=== PATIENT | male | born 1955 | race Two or more races ===

== ENCOUNTER 2017-03-17 15:15 | Emergency (ER) | payer OTHER ==
[~2017-03-17] VITALS: Ht 165.1 cm; Wt 68.0 kg
[2017-03-17 15:21] VITALS: BP 136/72
[2017-03-17 16:12] LABS: BASOPHILS % (AUTO) 0.6 % (0.0-2.0); EOSINOPHILS % (AUTO) 1.7 % (0.0-3.0); LYMPHOCYTES % (AUTO) 25.3 % (20.0-45.0); MEAN CORPUSCULAR HEMOGLOBIN 29.9 PG (27.0-31.0); MEAN CORPUSCULAR HGB CONC 34.3 G/DL (32.0-36.0); MEAN CORPUSCULAR VOLUME 87 FL (80-99); MEAN PLATELET VOLUME 7.1 FL (6.5-10.1); MONOCYTES % (AUTO) 4.8 % (1.0-10.0); NEUTROPHILS % (AUTO) 67.7 % (45.0-75.0); PLATELET COUNT 208 K/UL (150-450); RED BLOOD COUNT 4.73 M/UL (4.70-6.10); RED CELL DISTRIBUTION WIDTH 11.6 % (11.6-14.8); WHITE BLOOD COUNT 8.1 K/UL (4.8-10.8)
[2017-03-17 16:29] LABS: ANION GAP 9 mmol/L (5-15); CALCIUM 8.6 MG/DL (8.5-10.1); CARBON DIOXIDE 30 MMOL/L (21-32); CHLORIDE 102 MMOL/L (98-107); GLOMERULAR FILTRATION RATE > 60 mL/min (>60); POTASSIUM 3.6 MMOL/L (3.5-5.1); SODIUM 141 MMOL/L (136-145)
[2017-03-17] MEDS ORDERED: IBUPROFEN600 MG ORAL (16:50)
[2017-03-17 17:00] VITALS: BP 136/72
--- NOTE | 2017-03-17 20:50 | Emergency Room Report ---
History of Present Illness General Chief Complaint: Lower Extremity Injury Source: Patient (AMBROCIO MERRILL) Present Illness HPI The patient is a 61-year-old male presenting for right ankle pain which began 2 days ago for no known reason. 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 He denies any past injury or surgery to the ankle. He denies history of gout. Pain is a 9/10 dull ache to the outside of the right ankle and does not radiate. Worse with touch and walking. He denies any numbness or tingling, fever, chills, rash, calf pain or swelling , shortness of breath, chest pain (AMBROCIO MERRILL) Allergies: Coded Allergies: No Known Allergies (Unverified , 03/17/17) Patient History Past Medical History: see triage record Pertinent Family History: none Reviewed Nursing Documentation: PMH: Agreed, PSxH: Agreed (AMBROCIO MERRILL) Nursing Documentation-PMH Past Medical History: No History, Except For (AMBROCIO MERRILL) Review of Systems All Other Systems: negative except mentioned in HPI (AMBROCIO MERRILL) Physical Exam Vital Signs Date Time Temp Pulse Resp B/P (MAP) Pulse Ox O2 Delivery O2 Flow Rate FiO2 03/17/17 15:21 98.1 74 18 136/72 98 Room Air Sp02 EP Interpretation: reviewed, normal General Appearance: no apparent distress, alert, GCS 15, non-toxic Head: normocephalic, atraumatic Eyes: bilateral eye normal inspection, bilateral eye PERRL ENT: hearing grossly normal, normal pharynx, no angioedema, normal voice Musculoskeletal: no calf tenderness, decreased range of motion - R ankle, swelling - R lateral and anterior ankle, tender - R lateral ankle Neurologic: alert, oriented x3, responsive, motor strength/tone normal, sensory intact, speech normal Psychiatric: judgement/insight normal, memory normal, mood/affect normal, no suicidal/homicidal ideation Skin: normal color, no rash Lymphatic: no adenopathy (AMBROCIO MERRILL) Procedures Splinting Splinting : Consent: Verbal Location: R ankle del wrap Pre-Proc Neuro Vasc Exam: normal Post-Proc Neuro Vasc Exam: normal Patient Tolerated: Well Complications: None (AMBROCIO MERRILL) Medical Decision Making PA Attestation Dr. Lowery is my supervising physician. Patient management was discussed with my supervising physician (AMBROCIO MERRILL) Diagnostic Impression: Primary Impression: Ankle pain, right Qualified Codes: M25.571 - Pain in right ankle and joints of right foot ER Course The patient is a 61-year-old male presenting for right ankle pain which began 2 days ago for no known reason Ddx considered include but not limited to gout, septic arthritis, sprain/strain , fracture, contusion PE: Afebrile NAD Musculoskeletal: There is tenderness to palpation and edema to the right lateral and anterior ankle. Sensation is intact to light touch. Skin is warm and dry. There is limited active range of motion at the ankle. The patient states that this is normal for him. No calf tenderness or swelling CBC unremarkable. No leukocytosis BMP shows hyperglycemia. Otherwise unremarkable. Serum uric acid within normal limits Right ankle x-ray Shows soft tissue swelling. No fracture or dislocation Right ankle Del wrap is placed in the patient is discharged home with prescription for Motrin. he is given instructions for rice therapy He will follow up with his primary doctor. ER precautions given Laboratory Tests Test 03/17/17 15:50 White Blood Count 8.1 K/UL (4.8-10.8) Red Blood Count 4.73 M/UL (4.70-6.10) Hemoglobin 14.1 G/DL (14.2-18.0) L Hematocrit 41.3 % (42.0-52.0) L Mean Corpuscular Volume 87 FL (80-99) Mean Corpuscular Hemoglobin 29.9 PG (27.0-31.0) Mean Corpuscular Hemoglobin Concent 34.3 G/DL (32.0-36.0) Red Cell Distribution Width 11.6 % (11.6-14.8) Platelet Count 208 K/UL (150-450) Mean Platelet Volume 7.1 FL (6.5-10.1) Neutrophils (%) (Auto) 67.7 % (45.0-75.0) Lymphocytes (%) (Auto) 25.3 % (20.0-45.0) Monocytes (%) (Auto) 4.8 % (1.0-10.0) Eosinophils (%) (Auto) 1.7 % (0.0-3.0) Basophils (%) (Auto) 0.6 % (0.0-2.0) Sodium Level 141 MMOL/L (136-145) Potassium Level 3.6 MMOL/L (3.5-5.1) Chloride Level 102 MMOL/L (98-107) Carbon Dioxide Level 30 MMOL/L (21-32) Anion Gap 9 mmol/L (5-15) Blood Urea Nitrogen 18 mg/dL (7-18) Creatinine 1.0 MG/DL (0.55-1.30) Estimate Glomerular Filtration Rate > 60 mL/min (>60) Glucose Level 194 MG/DL (74-106) H Uric Acid 6.1 MG/DL (2.6-7.2) Calcium Level 8.6 MG/DL (8.5-10.1) Lab Results Impression CBC unremarkable. No leukocytosis BMP shows hyperglycemia. Otherwise unremarkable. Serum uric acid within normal limits (AMBROCIO MERRILL P.A.) Other X-Ray Diagnostic Results Other X-Ray Diagnostic Results : X-Ray ordered: R ankle # of Views/Limited Vs Complete: 3 View Indication: Pain EP Interpretation: Yes PA Xray: Interpretation reviewed, by supervising MD, and agrees with findings. Interpretation: no dislocation, no fractures, other - + STS Impression: Other - There is soft tissue swelling but no fracture or dislocation Electronically Signed by: Ambrocio Merrill PA-C (AMBROCIO MERRILL P.A.) Other X-Ray Diagnostic Results : Electronically Signed by: Christa documentation reviewed by me and is accurate, Francisco Javier Lowery MD. (Francisco Javier Lowery M.D.) Last Vital Signs Date Time Temp Pulse Resp B/P (MAP) Pulse Ox O2 Delivery O2 Flow Rate FiO2 03/17/17 17:00 98.1 18 136/72 98 Room Air 03/17/17 15:21 74 Status: improved (AMBROCIO MERRILL P.A.) Disposition: HOME, SELF-CARE Condition: Improved Scripts Ibuprofen* (MOTRIN*) 600 Mg Tablet 600 MG ORAL Q8H Y for For Pain, #30 TAB 0 Refills Prov: AMBROCIO MERRILL 03/17/17 Patient Instructions: Ankle Pain Additional Instructions: I discussed my findings with the patient. All questions and concerns have been answered. Treatment and medication compliance have been addressed. Return to ED if pain remains or worsens, numbness or tingling occurs, new rash is noticed, fever is noticed, or if needed for any reason. Patient verbalized understanding of discharge instructions. Please return to the emergency department if you notice other symptoms including fever, rash, and/or worsening pain AMBROCIO MERRILL Mar 17, 2017 20:50 Francisco Javier Lowery M.D. Mar 18, 2017 03:25
--- NOTE | 2017-03-20 10:36 | Diagnostic Imaging Report ---
Indication: Pain Technique: XRAY ANKLE MIN 3VWS RIGHT Comparison: None Findings: The bones appear demineralized. There is no acute fracture or dislocation. Ankle mortise is intact on these nonstress views. No ankle joint effusion is appreciated. No radiopaque foreign body is seen. There is mild bimalleolar soft tissue swelling. Degenerative changes at the talonavicular joint are noted. Impression: No acute fracture or dislocation.
== END 2017-03-17 17:00 | disposition home or self-care (01) ==
LOC: EMR 15:50
DX: M25.571 Pain in right ankle and joints of right foot (principal)
CPT/HCPCS: 36415; 80048; 84550; 85025; 99284

== ENCOUNTER 2017-03-20 15:57 | Emergency (ER) | payer OTHER ==
[~2017-03-20] VITALS: Ht 162.6 cm; Wt 77.1 kg
[~2017-03-20 15:57] MED LIST: IBUPROFEN600 MG ORAL
[2017-03-20] MEDS ORDERED: CEPHALEXIN500 MG ORAL (16:55)
[2017-03-20] MEDS ORDERED: TRAMADOL HCL50 MG ORAL (16:55)
[2017-03-20 17:10] VITALS: BP 136/89
--- NOTE | 2017-03-20 22:44 | Emergency Room Report ---
History of Present Illness General Chief Complaint: Pain Source: Patient Present Illness [facility] The patient is a 61-year-old male presenting for continued right ankle pain. He was seen in this emergency department 3 days prior for the same complaint. He had an x-ray done which was unremarkable. He was discharged with a prescription for Motrin. He states that the pain was decreasing for the previous 2 days and now has returned. Pain is an 8/10 dull ache and does not radiate. Worse with touch. He denies injury to the ankle. 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 He denies any other symptoms including fever, chills, rash, Pain or swelling, numbness Allergies: Coded Allergies: No Known Allergies (Unverified , 03/17/17) Patient History Past Medical History: see triage record Pertinent Family History: none Reviewed Nursing Documentation: PMH: Agreed, PSxH: Agreed Nursing Documentation-PMH Past Medical History: No History, Except For Review of Systems All Other Systems: negative except mentioned in HPI Physical Exam Vital Signs Date Time Temp Pulse Resp B/P (MAP) Pulse Ox O2 Delivery O2 Flow Rate FiO2 03/20/17 16:05 97.7 73 16 130/81 99 Room Air Sp02 EP Interpretation: reviewed, normal General Appearance: no apparent distress, alert, GCS 15, non-toxic Head: normocephalic, atraumatic Eyes: bilateral eye normal inspection, bilateral eye PERRL ENT: hearing grossly normal, normal pharynx, no angioedema, normal voice Neck: full range of motion, supple/symm/no masses Respiratory: chest non-tender, lungs clear, normal breath sounds, speaking full sentences Musculoskeletal: decreased range of motion - R ankle, swelling - R anterior ankle, tender - R anterior ankle Neurologic: alert, oriented x3, responsive, motor strength/tone normal, sensory intact, speech normal Psychiatric: judgement/insight normal, memory normal, mood/affect normal, no suicidal/homicidal ideation Skin: normal color, no rash, warm/dry, well hydrated Medical Decision Making PA Attestation Dr. Jolley is my supervising physician. Patient management was discussed with my supervising physician Diagnostic Impression: Primary Impression: Ankle pain, right Qualified Codes: M25.571 - Pain in right ankle and joints of right foot ER Course The patient is a 61-year-old male presenting for continued right ankle pain. Ddx considered include but not limited to sprain/strain, fracture, contusion, gout, cellulitis, among others PE: afebrile. NAD There is tenderness to palpation and edema to the right anterior ankle. Limited active range of motion. Sensation is intact to light touch. No erythema. No breaking the skin. Not fluctuant. No calf tenderness or edema The patient had an x-ray done 3 days prior of the ankle which was unremarkable. Blood work was also unremarkable including uric acid The patient will continue taking the Motrin as prescribed and is given prescription for tramadol. He is also given prescription for Keflex as a precaution for infection. He needs to followup with his primary doctor as soon as possible ER precautions given Last Vital Signs Date Time Temp Pulse Resp B/P (MAP) Pulse Ox O2 Delivery O2 Flow Rate FiO2 03/20/17 17:10 86 20 136/89 99 Room Air 03/20/17 17:10 98.0 Status: improved Disposition: HOME, SELF-CARE Condition: Improved Scripts Cephalexin* (KEFLEX*) 500 Mg Capsule 500 MG ORAL EVERY 12 HOURS, #14 CAP 0 Refills Prov: ETHEL MERRILL P.A. 03/20/17 Tramadol Hcl* (ULTRAM*) 50 Mg Tablet 50 MG ORAL Q6H Y for For Pain, #10 TAB 0 Refills Prov: ETHEL MERRILL P.A. 03/20/17 Referrals: [facility],REFERRING (PCP) Patient Instructions: Ankle Pain, RICE for Routine Care of Injuries Additional Instructions: I discussed my findings with the patient. All questions and concerns have been answered. Treatment and medication compliance have been addressed. I advised the patient that they need to follow up with primary doctor in 3-5 days. Return to ED if pain remains or worsens, numbness or tingling occurs, new rash is noticed, fever is noticed, or if needed for any reason. Patient verbalized understanding of discharge instructions. Continue to take the ibuprofen as directed. ETHEL MERRILL Mar 20, 2017 22:44
== END 2017-03-20 17:20 | disposition home or self-care (01) ==
LOC: EMR 16:50
DX: M25.571 Pain in right ankle and joints of right foot (principal)
CPT/HCPCS: 99283

== ENCOUNTER 2017-05-07 15:17 | Emergency (ER) | payer OTHER ==
[~2017-05-07] VITALS: Ht 167.6 cm; Wt 77.1 kg
[~2017-05-07 15:17] MED LIST changes: +CEPHALEXIN500 MG ORAL; +TRAMADOL HCL50 MG ORAL
[2017-05-07] MEDS ORDERED: METFORMIN HCL500 M1 ORAL (15:34)
[2017-05-07 15:38] VITALS: BP 118/74
--- NOTE | 2017-05-07 15:49 | Emergency Room Report ---
History of Present Illness General Chief Complaint: Abdominal Pain Source: Patient Present Illness HPI 61-year-old male with 1 day onset of multiple episodes of watery diarrhea, I to 6 in number. No associated blood in diarrhea. No sick contacts at home, no foreign travel. No history of abdominal surgery No associated nausea vomiting No urinary complaints hisotry of diabetes, takes metformin Patient has intermittent abdominal pain, improved after bowel movement Allergies: Coded Allergies: No Known Allergies (Unverified , 03/17/17) Patient History Past Medical History: DM Past Surgical History: none Pertinent Family History: none Social History: Denies: smoking, alcohol use, drug use Immunizations: UTD Reviewed Nursing Documentation: PMH: Agreed, PSxH: Agreed Nursing Documentation-PMH Past Medical History: No History, Except For Hx Cardiac Problems: No Hx Hypertension: No Hx Pacemaker: No Hx Asthma: No Hx COPD: No Hx Diabetes: Yes Hx Cancer: No Hx Gastrointestinal Problems: No Hx Dialysis: No History Of Psychiatric Problem: No Hx Neurological Problems: No Hx Cerebrovascular Accident: No Hx Seizures: No Review of Systems All Other Systems: negative except mentioned in HPI Physical Exam Vital Signs Date Time Temp Pulse Resp B/P (MAP) Pulse Ox O2 Delivery O2 Flow Rate FiO2 05/07/17 15:29 97.5 70 16 123/75 99 Room Air Sp02 EP Interpretation: reviewed, normal General Appearance: normal inspection, well appearing, no apparent distress, alert, GCS 15, non-toxic, other - Well-appearing, pleasant Head: normocephalic, atraumatic Eyes: bilateral eye PERRL, bilateral eye EOMI ENT: normal ENT inspection, hearing grossly normal, normal pharynx, no angioedema, normal voice, TMs + canals normal, uvula midline, moist mucus membranes Neck: normal inspection, full range of motion, supple, thyroid normal, no meningismus, no bony tend Respiratory: normal inspection, lungs clear, normal breath sounds, no rhonchi, no respiratory distress, no retraction, no accessory muscle use, no wheezing, speaking full sentences Cardiovascular #1: regular rate, rhythm, no edema, no JVD, normal capillary refill Gastrointestinal: normal inspection, normal bowel sounds, soft, no mass, no peritonitis, non-distended, no guarding, no hernia, no pulsatile mass, other - Various areas of abdominal tenderness, however no peritonitis or rigidity Genitourinary: no CVA tenderness Musculoskeletal: normal inspection, back normal, normal range of motion, no calf tenderness, pelvis stable, Kushal's Sign negative Neurologic: normal inspection, alert, oriented x3, responsive, global climate change researcher III-XII nml as tested, motor strength/tone normal, cerebellar normal, normal gait, speech normal Psychiatric: normal inspection, judgement/insight normal, mood/affect normal, no suicidal/homicidal ideation, no delusions Skin: normal inspection, normal color, no rash Lymphatic: normal inspection, no adenopathy Medical Decision Making Diagnostic Impression: Primary Impression: Elevated lipase Additional Impressions: Hypokalemia Diarrhea Qualified Codes: R19.7 - Diarrhea, unspecified Cystitis ER Course Labs significant for mild hypokalemia, and elevated lipase, likely reactionary from diarrhea. CT done to evaluate for acute pancreatitis however was negative for acute pathology. There was some bladder wall thickening and small amount of WBCs in urine with hematuria. Will tx empirically for UTI. Diarrhea resolved after Bentyl and Reglan in the ER Potassium repleted Was given macrobid and bentyl for Rx Advised close PMD followup DC home Last Vital Signs Date Time Temp Pulse Resp B/P (MAP) Pulse Ox O2 Delivery O2 Flow Rate FiO2 05/07/17 15:29 97.5 70 16 123/75 99 Room Air Status: improved Disposition: HOME, SELF-CARE Scripts Nitrofurantoin Monohyd/M-Cryst* (MACROBID 100 MG*) 100 Mg Capsule 100 MG ORAL EVERY 12 HOURS for 7 Days, #14 CAP Prov: MADELEINE PÉREZ M.D. 05/07/17 Dicyclomine Hcl* (BENTYL*) 10 Mg Capsule 10 MG ORAL TID for Diarrhea for 7 Days, #20 CAP Prov: MADELEINE PÉREZ M.D. 05/07/17 MADELEINE PÉREZ M.D. May 07, 2017 15:49
[2017-05-07] MEDS: Dicyclomine HCl 10mg/5ml oral soln ORAL ONE (16:02)
[2017-05-07 16:24] LABS: APPEARANCE,URINE CLEAR; BILIRUBIN, URINE NEGATIVE (NEGATIVE); COLOR,URINE PALE YELLOW; GLUCOSE, URINE (UA) NEGATIVE (NEGATIVE); KETONES,URINE NEGATIVE (NEGATIVE); LEUKOCYTE ESTERASE ,URINE 1+ (NEGATIVE); NITRITE,URINE NEGATIVE (NEGATIVE); PH,URINE 6 (4.5-8.0); PROTEIN,URINE NEGATIVE (NEGATIVE); UROBILINOGEN,URINE NORMAL MG/DL (0.0-1.0)
[2017-05-07 16:37] LABS: ANION GAP 7 mmol/L (5-15); BLOOD UREA NITROGEN 10 mg/dL (7-18); CALCIUM 8.8 MG/DL (8.5-10.1); CARBON DIOXIDE 29 MMOL/L (21-32); CHLORIDE 104 MMOL/L (98-107); CREATININE 0.9 MG/DL (0.55-1.30); POTASSIUM 3.1 MMOL/L (3.5-5.1); SODIUM 140 MMOL/L (136-145)
[2017-05-07 16:42] LABS: ALANINE AMINOTRANSFERASE 16 U/L (12-78); ALBUMIN 3.7 G/DL (3.4-5.0); ALKALINE PHOSPHATASE 76 U/L (46-116); ASPARTATE AMINO TRANSFERASE 14 U/L (15-37); BILIRUBIN,TOTAL 0.3 MG/DL (0.2-1.0)
[2017-05-07 17:04] LABS: BASOPHILS % (AUTO) 0.5 % (0.0-2.0); EOSINOPHILS % (AUTO) 0.6 % (0.0-3.0); HEMATOCRIT 45.2 % (42.0-52.0); HEMOGLOBIN 15.1 G/DL (14.2-18.0); LYMPHOCYTES % (AUTO) 23.9 % (20.0-45.0); MEAN CORPUSCULAR VOLUME 86 FL (80-99); MONOCYTES % (AUTO) 4.4 % (1.0-10.0); NEUTROPHILS % (AUTO) 70.6 % (45.0-75.0); PLATELET COUNT 247 K/UL (150-450); RED BLOOD COUNT 5.25 M/UL (4.70-6.10); RED CELL DISTRIBUTION WIDTH 11.7 % (11.6-14.8); WHITE BLOOD COUNT 9.7 K/UL (4.8-10.8)
[2017-05-07 18:24] VITALS: BP 123/75
[2017-05-07] MEDS ORDERED: NITROFURANTOIN100 M2 ORAL (18:24)
[2017-05-07] MEDS ORDERED: BENTYL10 MG ORAL (18:24)
[2017-05-07 18:32] VITALS: BP 123/75
--- NOTE | 2017-05-08 08:41 | Diagnostic Imaging Report ---
Clinical Indication: Abdominal pain, abnormal lipase Technique: No oral contrast utilized, per emergency room physician request IV administration nonionic contrast. Multiphasic spiral acquisitions obtained through the abdomen and pelvis. Multiplanar reconstructions were generated. Total dose length product 1882.04 mGycm. CTDIvol(s) 20.38,18.61 mGy. Dose reduction achieved using automated exposure control Comparison: none Findings: The pancreas is unremarkable. The liver, gallbladder, bile ducts, spleen, adrenals, right kidney are all unremarkable. The left kidney demonstrates a lower pole volume loss with adjacent cysts and dystrophic calcifications. Some the calcifications may be in the lower pole collecting system is well No retroperitoneal or mesenteric mass or adenopathy. No pelvic mass or adenopathy. The prostate is somewhat prominent.. Lack of enteric contrast limits assessment of the GI tract. There are a few colonic diverticula. No evidence of diverticulitis. Normal appendix. No small bowel distention. No free or loculated intraperitoneal air or fluid is evident. Distal esophagus, stomach, duodenum are unremarkable. The included lung bases demonstrate posterior dependent atelectatic change. Normal heart size. The bones are unremarkable. Impression: No acute abnormality. Unremarkable pancreas Left renal scarring and likely dystrophic calcification as well as possible nonobstructing calyceal calculi. Presumably postinflammatory in nature Posterior pulmonary parenchymal atelectatic changes This agrees with the preliminary interpretation provided overnight by [facility] teleradiology service. The CT scanner at [facility] is accredited by the [employer] [employer] and the scans are performed using protocols designed to limit radiation exposure to as low as reasonably achievable to attain images of sufficient resolution adequate for diagnostic evaluation.
== END 2017-05-07 18:34 | disposition home or self-care (01) ==
LOC: EMR 17:18
DX: R79.89 Other specified abnormal findings of blood chemistry (principal); E87.6 Hypokalemia; R19.7 Diarrhea, unspecified; N30.90 Cystitis, unspecified without hematuria; E11.9 Type 2 diabetes mellitus without complications
CPT/HCPCS: 36415; 74177; 80053; 81003; 83690; 85025; 96374; 99284; Q9967; S0028; J8499

== ENCOUNTER 2017-07-12 09:57 | Emergency (ER) | payer OTHER ==
[~2017-07-12] VITALS: Ht 172.7 cm; Wt 70.3 kg
[~2017-07-12 09:57] MED LIST changes: +BENTYL10 MG ORAL; +METFORMIN HCL500 M1 ORAL; +NITROFURANTOIN100 M2 ORAL
[2017-07-12 10:17] VITALS: BP 123/80
[2017-07-12] MEDS ORDERED: INDOMETHACIN50 MG PO (10:55)
--- NOTE | 2017-07-12 12:00 | Emergency Room Report ---
History of Present Illness General Chief Complaint: Pain Source: Patient Present Illness HPI 61-year-old male presents to ED for evaluation. Complaining of left big toe pain and swelling 3 days. Pain is throbbing, 8 at 10 nonradiating. Denies recent trauma. States he was here a few months ago with right ankle pain without trauma. No other aggravating relieving factors. Denies any other associated symptoms Allergies: Coded Allergies: No Known Allergies (Unverified , 03/17/17) Patient History Past Medical History: DM Past Surgical History: none Pertinent Family History: none Social History: Denies: smoking, alcohol use, drug use Immunizations: UTD Reviewed Nursing Documentation: PMH: Agreed; PSxH: Agreed Nursing Documentation-PMH Hx Cardiac Problems: No - kidney stone Hx Hypertension: No Hx Pacemaker: No Hx Asthma: No Hx COPD: No Hx Diabetes: Yes - DM2 Hx Cancer: No Hx Gastrointestinal Problems: No Hx Dialysis: No Hx Neurological Problems: No Hx Cerebrovascular Accident: No Hx Seizures: No Review of Systems All Other Systems: negative except mentioned in HPI Physical Exam Vital Signs Date Time Temp Pulse Resp B/P (MAP) Pulse Ox O2 Delivery O2 Flow Rate FiO2 07/12/17 10:10 98.4 66 17 123/80 99 Room Air 98.4 Sp02 EP Interpretation: reviewed, normal General Appearance: no apparent distress, alert, GCS 15, non-toxic Head: normocephalic Eyes: bilateral eye normal inspection, bilateral eye PERRL ENT: normal ENT inspection Neck: normal inspection Respiratory: normal inspection Cardiovascular #1: normal inspection Gastrointestinal: normal inspection Rectal: deferred Genitourinary: no CVA tenderness Musculoskeletal: tender - L big toe. no erythema. no induration. no discharge Neurologic: alert, oriented x3, responsive, motor strength/tone normal, sensory intact, speech normal Psychiatric: normal inspection Skin: normal inspection Lymphatic: normal inspection Medical Decision Making Diagnostic Impression: Primary Impression: Toe pain Qualified Codes: M79.675 - Pain in left toe(s) ER Course Hospital Course 61-year-old M presents ED with left big toe pain and swelling. Differential diagnoses include: Fracture, dislocation, sprain, contusion, bursitis, septic joint Clinical course Patient placed on stretcher. After initial history, physical exam reveals an male in no acute distress. There is swelling and to the left toe. No fluctuance. Patient appears well and nontoxic. No evidence of ingrown toenail Patient was here in March with nontraumatic ankle pain. Workup was negative including labs and x-ray. Given these 2 presentations I have suspicion for gout. Discussed with patient. Given no bruising or crepitus, no history of trauma I do not believe x-rays are indicated at this time Diagnosis - toe pain Stable and discharged to home with prescription for indomethacin. Followup with PMD. Return to ED if symptoms recur or worsen Last Vital Signs Date Time Temp Pulse Resp B/P (MAP) Pulse Ox O2 Delivery O2 Flow Rate FiO2 07/12/17 11:03 98.4 73 18 123/80 99 Room Air 98.4 Status: improved Disposition: HOME, SELF-CARE Condition: Stable Scripts Indomethacin (INDOMETHACIN) 50 Mg Capsule 50 MG PO TID for 7 Days, CAP Prov: Sampson Sheikh MD 07/12/17 Referrals: [facility],REFERRING (PCP) Patient Instructions: Gout, [id number] Sampson Sheikh MD Jul 12, 2017 12:00
== END 2017-07-12 11:29 | disposition home or self-care (01) ==
LOC: EMR 10:30
DX: M79.675 Pain in left toe(s) (principal); E11.9 Type 2 diabetes mellitus without complications
CPT/HCPCS: 82962; 99283

== ENCOUNTER 2018-02-04 14:59 | Inpatient (IN) | payer OTHER ==
[~2018-02-04] VITALS: Ht 160 cm; Wt 64.9 kg
[~2018-02-04 14:59] MED LIST changes: +INDOMETHACIN50 MG PO
--- NOTE | 2018-02-04 15:12 | Emergency Room Report ---
History of Present Illness General Chief Complaint: Pain Source: Patient Present Illness HPI 62-year-old male, history of diabetes, kidney stones, presenting with left- sided flank pain. Patient states that he was recently hospitalized at [facility] about 9 days ago. During that time he was diagnosed with a left-sided kidney stone, he underwent lithotripsy, and was sent home. Patient has been taking Flomax as well as [place]. Patient states that he started to have increased sharp pain in his left flank radiating to groin, started about 10 :30 this morning. Had some nausea vomiting. No fever no chills. No gross hematuria Allergies: Coded Allergies: No Known Allergies (Unverified , 03/17/17) Patient History Past Medical History: see triage record Past Surgical History: none Pertinent Family History: none Reviewed Nursing Documentation: PMH: Agreed; PSxH: Agreed Nursing Documentation-PMH Past Medical History: No History, Except For Hx Cardiac Problems: No - hx of kidney stone Hx Hypertension: No Hx Pacemaker: No Hx Asthma: No Hx COPD: No Hx Diabetes: Yes - DM2 Hx Cancer: No Hx Gastrointestinal Problems: No Hx Dialysis: No Hx Neurological Problems: No Hx Cerebrovascular Accident: No Hx Seizures: No Review of Systems All Other Systems: negative except mentioned in HPI Physical Exam Vital Signs Date Time Temp Pulse Resp B/P (MAP) Pulse Ox O2 Delivery O2 Flow Rate FiO2 02/04/18 15:00 97.5 71 18 143/83 100 Room Air Sp02 EP Interpretation: reviewed, normal General Appearance: alert, GCS 15, non-toxic, moderate distress Head: normocephalic, atraumatic Eyes: bilateral eye normal inspection, bilateral eye PERRL, bilateral eye EOMI ENT: normal ENT inspection, normal pharynx, normal voice, moist mucus membranes Neck: normal inspection, full range of motion, supple Respiratory: normal inspection, lungs clear, normal breath sounds, no respiratory distress, no retraction, no wheezing, speaking full sentences, chest symmetrical Cardiovascular #1: normal inspection, regular rate, rhythm, normal capillary refill Cardiovascular #2: 2+ radial (R), 2+ radial (L) Gastrointestinal: normal inspection, non tender, soft, non-distended, no guarding Genitourinary: no CVA tenderness Musculoskeletal: normal inspection, back normal, normal range of motion, non- tender Neurologic: normal inspection, alert, oriented x3, responsive, motor strength/ tone normal, sensory intact, normal gait, speech normal Psychiatric: normal inspection, judgement/insight normal, memory normal Skin: normal inspection, normal color, no rash, warm/dry, well hydrated, normal turgor Medical Decision Making Diagnostic Impression: Primary Impression: Nephrolithiasis Additional Impression: Cystitis ER Course 62-year-old male with left-sided flank pain, recent lithotripsy performed 9 days ago for left-sided kidney stone DDX: Nephrolithiasis, UTI, pyelonephritis, complication of lithotripsy Plan: Obtain labs, ua, ucx, CXR, EKG CT without contrast ER course: Patient has remained stable during ED stay. Given fluids and morphine ABX given for poss infected stone Disposition: Will be admitted --DW Dr Dalton urology paged - Dr Gao Please note that this Emergency Department Report was dictated using [employer] services coordinator technology software, occasionally this can lead to erroneous entry secondary to interpretation by the dictation equipment EKG Diagnostic Results EP Interpretation: Yes Rate: normal Rhythm: NSR ST Segments: No acute changes ASA given to patient: No Rhythm Strip EP Interpretation: Yes Rate: 70 Rhythm: NSR, no PVCs, no ectopy Chest X-ray CXR: Ordered: Yes 1 view Indication: Chest pain EP interpretation: Yes Interpretation: No consolidation, no effusion, no PTX, no acute cardiopulmonary disease Impression: No acute disease Electronically signed by See Galvez MD Laboratory Tests Test 02/04/18 15:35 White Blood Count 11.4 K/UL (4.8-10.8) H Red Blood Count 5.20 M/UL (4.70-6.10) Hemoglobin 14.9 G/DL (14.2-18.0) Hematocrit 44.2 % (42.0-52.0) Mean Corpuscular Volume 85 FL (80-99) Mean Corpuscular Hemoglobin 28.7 PG (27.0-31.0) Mean Corpuscular Hemoglobin Concent 33.7 G/DL (32.0-36.0) Red Cell Distribution Width 11.1 % (11.6-14.8) L Platelet Count 198 K/UL (150-450) Mean Platelet Volume 6.4 FL (6.5-10.1) L Neutrophils (%) (Auto) 86.3 % (45.0-75.0) H Lymphocytes (%) (Auto) 10.7 % (20.0-45.0) L Monocytes (%) (Auto) 2.7 % (1.0-10.0) Eosinophils (%) (Auto) 0.2 % (0.0-3.0) Basophils (%) (Auto) 0.1 % (0.0-2.0) Prothrombin Time 10.6 SEC (9.30-11.50) Prothrombin Time INR 1.0 (0.9-1.1) PTT 23 SEC (23-33) Sodium Level 139 MMOL/L (136-145) Potassium Level 3.7 MMOL/L (3.5-5.1) Chloride Level 103 MMOL/L (98-107) Carbon Dioxide Level 24 MMOL/L (21-32) Anion Gap 12 mmol/L (5-15) Blood Urea Nitrogen 11 mg/dL (7-18) Creatinine 1.1 MG/DL (0.55-1.30) Estimate Glomerular Filtration Rate > 60 mL/min (>60) Glucose Level 132 MG/DL (74-106) H Calcium Level 8.7 MG/DL (8.5-10.1) Total Bilirubin 0.4 MG/DL (0.2-1.0) Aspartate Amino Transferase (AST) 16 U/L (15-37) Alanine Aminotransferase (ALT) 15 U/L (12-78) Alkaline Phosphatase 72 U/L (46-116) Troponin I 0.009 ng/mL (0.000-0.056) Total Protein 7.3 G/DL (6.4-8.2) Albumin 3.9 G/DL (3.4-5.0) Globulin 3.4 g/dL Albumin/Globulin Ratio 1.1 (1.0-2.7) CT/MRI/US Diagnostic Results CT/MRI/US Diagnostic Results : Imaging Test Ordered: CT ABDO PELVIS Impression Interval Left-sided Stafford nephrosis secondary to a 3-4 left tandem stones within the upper ureter, largest 7 mm, perinephric stranding noted. Bladder wall thickened correlate for cystitis Last Vital Signs Date Time Temp Pulse Resp B/P (MAP) Pulse Ox O2 Delivery O2 Flow Rate FiO2 02/04/18 15:00 97.5 71 18 143/83 100 Room Air Disposition: ADMITTED INPATIENT Condition: Serious RetinoSee M.D. Feb 04, 2018 15:12
[2018-02-04] MEDS ORDERED: Isovue-300 100ml vial INJ PRN (15:15)
[2018-02-04] MEDS ORDERED: Morphine Sulfate 4mg/ml Inj (IV/IM USE ONLY) IVP ONE ×2 (15:15→16:00)
[2018-02-04 15:35] VITALS: BP 143/83
[2018-02-04 15:58] LABS: HEMATOCRIT 44.2 % (42.0-52.0); HEMOGLOBIN 14.9 G/DL (14.2-18.0); MEAN CORPUSCULAR VOLUME 85 FL (80-99); PLATELET COUNT 198 K/UL (150-450); RED CELL DISTRIBUTION WIDTH 11.1 % (11.6-14.8); WHITE BLOOD COUNT 11.4 K/UL (4.8-10.8)
[2018-02-04 15:59] LABS: LYMPHOCYTES % (AUTO) 10.7 % (20.0-45.0); NEUTROPHILS % (AUTO) 86.3 % (45.0-75.0)
[2018-02-04 16:00] LABS: BASOPHILS % (AUTO) 0.1 % (0.0-2.0); EOSINOPHILS % (AUTO) 0.2 % (0.0-3.0); MONOCYTES % (AUTO) 2.7 % (1.0-10.0)
[2018-02-04 16:10] LABS: ANION GAP 12 mmol/L (5-15); BLOOD UREA NITROGEN 11 mg/dL (7-18); CALCIUM 8.7 MG/DL (8.5-10.1); CARBON DIOXIDE 24 MMOL/L (21-32); CHLORIDE 103 MMOL/L (98-107); CREATININE 1.1 MG/DL (0.55-1.30); POTASSIUM 3.7 MMOL/L (3.5-5.1); SODIUM 139 MMOL/L (136-145)
[2018-02-04 16:15] LABS: ALANINE AMINOTRANSFERASE 15 U/L (12-78); ALBUMIN 3.9 G/DL (3.4-5.0); ALBUMIN/GLOBULIN RATIO 1.1 (1.0-2.7); ALKALINE PHOSPHATASE 72 U/L (46-116); ASPARTATE AMINO TRANSFERASE 16 U/L (15-37); BILIRUBIN,TOTAL 0.4 MG/DL (0.2-1.0)
--- NOTE | 2018-02-04 16:25 | Diagnostic Imaging Report ---
Indication: Dyspnea Comparison: None A single view chest radiograph was obtained. Findings: Cardiomediastinal appearance is within normal limits for age. The lungs are clear. Pulmonary vascularity is appropriate. The diaphragmatic contour is smooth and costophrenic angles are sharp. No pleural effusions are identified. The bones are unremarkable. Impression: No acute findings
[2018-02-04] MEDS ORDERED: HYDROmorphone 1mg/ml Carpuject IVP ONE (16:30)
[2018-02-04] MEDS ORDERED: cefTRIAXone 1 GM in NS 55 ML IVPB ONE (18:15)
[2018-02-04 18:24] LABS: APPEARANCE,URINE CLEAR; BILIRUBIN, URINE NEGATIVE (NEGATIVE); COLOR,URINE PALE YELLOW; GLUCOSE, URINE (UA) NEGATIVE (NEGATIVE); KETONES,URINE 1+ (NEGATIVE); LEUKOCYTE ESTERASE ,URINE 2+ (NEGATIVE); NITRITE,URINE NEGATIVE (NEGATIVE); PH,URINE 6 (4.5-8.0); PROTEIN,URINE NEGATIVE (NEGATIVE); UROBILINOGEN,URINE NORMAL MG/DL (0.0-1.0)
[2018-02-04] MEDS ORDERED: Morphine Sulfate 2mg/ml Inj IV PRN ×2 (19:30)
[2018-02-04] MEDS ORDERED: Nitroglycerin Subl 0.4mg tab SL PRN (19:30)
[2018-02-04] MEDS ORDERED: Miralax 17gm pkt ORAL PRN (19:30)
[2018-02-04] MEDS ORDERED: cefTRIAXone 1 GM in D5W 55 ML IVPB SCH (19:30)
[2018-02-04] MEDS ORDERED: Morphine Sulfate 2mg/ml Inj IVP PRN ×2 (19:30)
[2018-02-04] MEDS ORDERED: Mylanta II UD 30ml ORAL PRN (19:30)
[2018-02-04] MEDS ORDERED: traMADol 50mg tab ORAL PRN (19:30)
[2018-02-04 19:57] VITALS: BP 137/87
[2018-02-04] MEDS ORDERED: Ketorolac 30mg Inj IV ONE (20:45)
[2018-02-04] MEDS: Heparin 5000 units/ml inj SUBQ SCH (20:47)
[2018-02-04 21:30] VITALS: BP 115/76
[2018-02-04] MEDS: D5 1/2NS 1,000 ML IV SCH (21:48)
[2018-02-04] MEDS ORDERED: COLACE100 MG ORAL (22:17)
[2018-02-04] MEDS ORDERED: TAMSULOSIN HCL0.4 MG ORAL (22:17)
[2018-02-04 23:34] LABS: BILIRUBIN, URINE NEGATIVE (NEGATIVE); COLOR,URINE PALE YELLOW; GLUCOSE, URINE (UA) NEGATIVE (NEGATIVE); KETONES,URINE NEGATIVE (NEGATIVE); LEUKOCYTE ESTERASE ,URINE 1+ (NEGATIVE); NITRITE,URINE NEGATIVE (NEGATIVE); PH,URINE 5 (4.5-8.0); PROTEIN,URINE 1+ (NEGATIVE); UROBILINOGEN,URINE NORMAL MG/DL (0.0-1.0)
[2018-02-04 23:46] LABS: APPEARANCE,URINE CLEAR
[2018-02-05] VITALS: BP 101/54
[2018-02-05 04:00] VITALS: BP 106/55
[2018-02-05 07:43] LABS: BASOPHILS % (AUTO) 0.5 % (0.0-2.0); EOSINOPHILS % (AUTO) 1.8 % (0.0-3.0); HEMATOCRIT 39.9 % (42.0-52.0); HEMOGLOBIN 14.3 G/DL (14.2-18.0); LYMPHOCYTES % (AUTO) 27.2 % (20.0-45.0); MEAN CORPUSCULAR VOLUME 83 FL (80-99); MONOCYTES % (AUTO) 5.3 % (1.0-10.0); NEUTROPHILS % (AUTO) 65.2 % (45.0-75.0); PLATELET COUNT 171 K/UL (150-450); RED BLOOD COUNT 4.78 M/UL (4.70-6.10); RED CELL DISTRIBUTION WIDTH 11.3 % (11.6-14.8); WHITE BLOOD COUNT 7.1 K/UL (4.8-10.8)
[2018-02-05 07:45] LABS: ALANINE AMINOTRANSFERASE 10 U/L (12-78); ALBUMIN 2.9 G/DL (3.4-5.0); ALKALINE PHOSPHATASE 64 U/L (46-116); AMYLASE 90 U/L (25-115); ANION GAP 8 mmol/L (5-15); ASPARTATE AMINO TRANSFERASE 13 U/L (15-37); BILIRUBIN,TOTAL 0.3 MG/DL (0.2-1.0); BLOOD UREA NITROGEN 10 mg/dL (7-18); CARBON DIOXIDE 26 MMOL/L (21-32); CHLORIDE 106 MMOL/L (98-107); CREATININE 0.9 MG/DL (0.55-1.30); POTASSIUM 3.3 MMOL/L (3.5-5.1); SODIUM 140 MMOL/L (136-145)
[2018-02-05 08:00] VITALS: BP 116/63
--- NOTE | 2018-02-05 08:34 | Diagnostic Imaging Report ---
Clinical Indication: Left-sided flank pain, history of diabetes, history of recent lithotripsy for left-sided kidney stones Technique: No oral contrast utilized, per protocol. Precontrast spiral acquisitions obtained through the abdomen and pelvis. IV administration nonionic contrast. Multiphasic spiral acquisitions obtained through the abdomen and pelvis. Multiplanar reconstructions were generated. Total dose length product 1770 mGycm. CTDIvol(s) 12, 11, 11 mGy. Dose reduction achieved using automated exposure control Comparison: 05/07/2017 Findings: Within the proximal left ureter, approximately 3 cm distal to the ureteropelvic junction, there are at least 4 calculi lined adjacent to one another The most distal is probably the largest, measuring 5 x 4 mm. This results in mild hydronephrosis and proximal hydroureter. Multiple calculi are seen in the lower pole of the left kidney. Some of these may be parenchymal dystrophic calcifications in addition to calyceal calculi There is some parenchymal renal loss in the lower pole of the left kidney posteriorly where the calculi are located. The largest intrarenal calculi measure up to 9 mm long axis dimension. There is some stranding of the perinephric fat. There is an area of low attenuation on the postcontrast images which is slightly hyperattenuating on the precontrast images, measures 14 x 9 mm, and may periphery of the left lower pole which does not appear to significantly enhance. When compared to prior exam, the ureteral calculi and hydronephrosis are new findings. There are fewer lower pole calculi than previously. The lower pole scarring and volume loss is similar. The perinephric fat stranding is a new finding. The peripheral lower pole lesion was evident previously. No right renal or ureteral calculi, hydronephrosis, hydroureter, or parenchymal abnormality demonstrated. The bladder wall is equivocally mildly thickened. No bladder calculi are demonstrated. The prostate is enlarged. The seminal vesicles are unremarkable. The appendix is normal. There is no evidence of diverticulosis or diverticulitis. No small bowel distention. No free or loculated intraperitoneal gas or fluid. The distal esophagus, stomach, duodenum are unremarkable. The liver, gallbladder, bile ducts, pancreas, spleen, adrenals are all unremarkable. There are prominent mesenteric root and retroperitoneal nodes, although none definitely enlarged. No pelvic mass or adenopathy. The lung bases demonstrate posterior dependent atelectatic changes. There is mild bilateral gynecomastia incidentally noted. The bones are unremarkable. The extrarenal findings are unchanged Impression: Multiple tandem calculi in the proximal left ureter (so-called Steinstrasse), measuring up to 5 x 4 mm, resulting in mild hydronephrosis, proximal hydroureter, and perinephric fat stranding. There is a new finding since previous study of 05/07/2017 Multiple lower pole calyceal and possibly parenchymal dystrophic calculi, slightly less numerous and smaller than on prior study of 05/07/2017 Evidence of left lower pole renal scarring. May be postinflammatory related to prior stone disease, versus in part related to prior surgical interventions. Left lower pole nonenhancing mass, probably a complex cyst or focal calyceal ectasia related to previous interventions, unchanged Mild bladder wall thickening, cystitis a possibility. Correlate with clinical findings Prostatomegaly Borderline retroperitoneal and mesenteric root lymphadenopathy, similar to previous exam, possibly reactive Incidental finding of mild bilateral gynecomastia This agrees with the preliminary interpretation provided overnight by Dr. Keys The CT scanner at [facility] is accredited by the [employer] and the scans are performed using protocols designed to limit radiation exposure to as low as reasonably achievable to attain images of sufficient resolution adequate for diagnostic evaluation.
[2018-02-05] MEDS ORDERED: Ketorolac 30mg Inj IV SCH (08:45)
[2018-02-05] MEDS ORDERED: Docusate 100mg cap ORAL SCH (09:00)
[2018-02-05] MEDS: Heparin 5000 units/ml inj SUBQ SCH (09:16)
[2018-02-05] MEDS: D5 1/2NS 1,000 ML IV SCH (10:51)
[2018-02-05 11:34] VITALS: BP 126/69
[2018-02-05] MEDS: NovoLOG Insulin Flexpen SUBQ SCH ×2 (11:50→16:30)
--- NOTE | 2018-02-05 14:26 | Consultation ---
History of Present Illness General Date patient seen: Feb 05, 2018 Chief Complaint: Pain Present Illness HPI 62-year-old male, history of diabetes, kidney stones, presenting with left- sided flank pain. Pt recently underwent lithotripsy. Patient has been taking Flomax as well as [place]. Patient states that he started to have increased sharp pain in his left flank radiating to groin. No sign of sepsis or UTI. Allergies: Coded Allergies: No Known Allergies (Unverified , 03/17/17) Medication History Scheduled Cephalexin* (Keflex*), 500 MG ORAL EVERY 12 HOURS Dicyclomine Hcl* (Bentyl*), 10 MG ORAL TID Docusate Sodium* (Colace*), 100 MG ORAL TWICE A DAY, (Reported) Indomethacin (Indomethacin), 50 MG PO TID Metformin Hcl* (Metformin Hcl*), 500 MG ORAL BID, (Reported) Nitrofurantoin Monohyd/M-Cryst* (Macrobid 100 Mg*), 100 MG ORAL EVERY 12 HOURS Tamsulosin Hcl (Tamsulosin Hcl*), 0.4 MG ORAL BEDTIME, (Reported) Scheduled PRN Ibuprofen* (Motrin*), 600 MG ORAL Q8H PRN for For Pain Tramadol Hcl* (Ultram*), 50 MG ORAL Q6H PRN for For Pain Patient History Healthcare decision maker Resuscitation status Full Code Advanced Directive on File Past Medical/Surgical History Past Medical/Surgical History: (1) Nephrolithiasis Review of Systems All Other Systems: negative except mentioned in HPI Physical Exam General Appearance: WD/WN Lines, tubes and drains: peripheral, central line HEENT: normocephalic, atraumatic Neck: non-tender, normal alignment Respiratory/Chest: chest wall non-tender, lungs clear Breasts: no masses Cardiovascular/Chest: normal peripheral pulses Last 24 Hour Vital Signs Date Time Temp Pulse Resp B/P (MAP) Pulse Ox O2 Delivery O2 Flow Rate FiO2 02/05/18 11:34 98.1 69 16 126/69 (88) 98 02/05/18 09:00 Room Air 02/05/18 08:00 97.7 67 16 116/63 (80) 98 02/05/18 04:00 97.7 67 19 106/55 (72) 98 02/05/18 00:17 Room Air 02/05/18 00:00 97.3 79 19 101/54 (70) 98 02/04/18 21:34 98.0 16 132/78 98 02/04/18 21:30 97.9 75 19 115/76 (89) 98 02/04/18 19:57 97.5 18 137/87 100 Room Air 02/04/18 15:35 97.5 18 143/83 100 Room Air 02/04/18 15:00 97.5 71 18 143/83 100 Room Air Intake and Output 02/04/18 02/05/18 19:00 07:00 Intake Total 0 ml 675 ml Output Total 450 ml Balance 0 ml 225 ml Intake Oral 0 ml IV Total 675 ml Output Urine Total 450 ml Laboratory Tests Test 02/04/18 15:35 02/04/18 18:05 02/04/18 23:00 02/05/18 06:42 White Blood Count 11.4 K/UL (4.8-10.8) H 7.1 K/UL (4.8-10.8) Red Blood Count 5.20 M/UL (4.70-6.10) 4.78 M/UL (4.70-6.10) Hemoglobin 14.9 G/DL (14.2-18.0) 14.3 G/DL (14.2-18.0) Hematocrit 44.2 % (42.0-52.0) 39.9 % (42.0-52.0) L Mean Corpuscular Volume 85 FL (80-99) 83 FL (80-99) Mean Corpuscular Hemoglobin 28.7 PG (27.0-31.0) 29.8 PG (27.0-31.0) Mean Corpuscular Hemoglobin Concent 33.7 G/DL (32.0-36.0) 35.8 G/DL (32.0-36.0) Red Cell Distribution Width 11.1 % (11.6-14.8) L 11.3 % (11.6-14.8) L Platelet Count 198 K/UL (150-450) 171 K/UL (150-450) Mean Platelet Volume 6.4 FL (6.5-10.1) L 6.4 FL (6.5-10.1) L Neutrophils (%) (Auto) 86.3 % (45.0-75.0) H 65.2 % (45.0-75.0) Lymphocytes (%) (Auto) 10.7 % (20.0-45.0) L 27.2 % (20.0-45.0) Monocytes (%) (Auto) 2.7 % (1.0-10.0) 5.3 % (1.0-10.0) Eosinophils (%) (Auto) 0.2 % (0.0-3.0) 1.8 % (0.0-3.0) Basophils (%) (Auto) 0.1 % (0.0-2.0) 0.5 % (0.0-2.0) Prothrombin Time 10.6 SEC (9.30-11.50) Prothromb Time International Ratio 1.0 (0.9-1.1) Activated Partial Thromboplast Time 23 SEC (23-33) 25 SEC (23-33) Sodium Level 139 MMOL/L (136-145) 140 MMOL/L (136-145) Potassium Level 3.7 MMOL/L (3.5-5.1) 3.3 MMOL/L (3.5-5.1) L Chloride Level 103 MMOL/L (98-107) 106 MMOL/L (98-107) Carbon Dioxide Level 24 MMOL/L (21-32) 26 MMOL/L (21-32) Anion Gap 12 mmol/L (5-15) 8 mmol/L (5-15) Blood Urea Nitrogen 11 mg/dL (7-18) 10 mg/dL (7-18) Creatinine 1.1 MG/DL (0.55-1.30) 0.9 MG/DL (0.55-1.30) Estimat Glomerular Filtration Rate > 60 mL/min (>60) > 60 mL/min (>60) Glucose Level 132 MG/DL (74-106) H 126 MG/DL (74-106) H Calcium Level 8.7 MG/DL (8.5-10.1) 8.0 MG/DL (8.5-10.1) L Total Bilirubin 0.4 MG/DL (0.2-1.0) 0.3 MG/DL (0.2-1.0) Aspartate Amino Transf (AST/SGOT) 16 U/L (15-37) 13 U/L (15-37) L Alanine Aminotransferase (ALT/SGPT) 15 U/L (12-78) 10 U/L (12-78) L Alkaline Phosphatase 72 U/L (46-116) 64 U/L (46-116) Troponin I 0.009 ng/mL (0.000-0.056) Total Protein 7.3 G/DL (6.4-8.2) 5.9 G/DL (6.4-8.2) L Albumin 3.9 G/DL (3.4-5.0) 2.9 G/DL (3.4-5.0) L Globulin 3.4 g/dL 3.0 g/dL Albumin/Globulin Ratio 1.1 (1.0-2.7) 1.0 (1.0-2.7) Urine Color Pale yellow Pale yellow Urine Appearance Clear Clear Urine pH 6 (4.5-8.0) 5 (4.5-8.0) Urine Specific [place] 1.005 (1.005-1.035) 1.015 (1.005-1.035) Urine Protein Negative (NEGATIVE) 1+ (NEGATIVE) H Urine Glucose (UA) Negative (NEGATIVE) Negative (NEGATIVE) Urine Ketones 1+ (NEGATIVE) H Negative (NEGATIVE) Urine Blood 5+ (NEGATIVE) H 3+ (NEGATIVE) H Urine Nitrite Negative (NEGATIVE) Negative (NEGATIVE) Urine Bilirubin Negative (NEGATIVE) Negative (NEGATIVE) Urine Urobilinogen Normal MG/DL (0.0-1.0) Normal MG/DL (0.0-1.0) Urine Leukocyte Esterase 2+ (NEGATIVE) H 1+ (NEGATIVE) H Urine RBC 20-30 /HPF (0 - 0) H 20-30 /HPF (0 - 0) H Urine WBC 0-2 /HPF (0 - 0) 0-2 /HPF (0 - 0) Urine Squamous Epithelial Cells Occasional /LPF Few /LPF (NONE/OCC) Urine Bacteria Occasional /HPF (NONE) Few /HPF (NONE) Amylase Level 90 U/L (25-115) Lipase 220 U/L (73-393) Height (Feet): 5 Height (Inches): 3.00 Weight (Pounds): 143 Medications Current Medications Medications (Trade) Dose Ordered Sig/Zaida Route PRN Reason Start Time Stop Time Status Last Admin Dose Admin Acetaminophen (Tylenol) 650 mg Q4H PRN ORAL fever 02/04/18 19:30 03/06/18 19:29 Al Hydroxide/Mg Hydroxide (Mylanta II) 30 ml Q6H PRN ORAL dyspepsia 02/04/18 19:30 03/06/18 19:29 Ceftriaxone Sodium 1 gm/ Dextrose 55 ml @ 110 mls/hr Q24H IVPB 02/05/18 18:00 02/12/18 17:59 Dextrose (Dextrose 50%) 25 ml Q30M PRN IV Hypoglycemia 02/05/18 08:15 03/07/18 08:14 Dextrose (Dextrose 50%) 50 ml Q30M PRN IV Hypoglycemia 02/05/18 08:15 03/07/18 08:14 Dextrose/Sodium Chloride 1,000 ml @ 75 mls/hr [id number] IV 02/04/18 20:51 03/06/18 20:50 02/05/18 10:51 Diphenhydramine HCl (Benadryl) 25 mg Q6H PRN ORAL Itching/Pruritis 02/04/18 19:30 03/06/18 19:29 Docusate Sodium (Colace) 100 mg TWICE A DAY ORAL 02/05/18 09:00 03/07/18 08:59 02/05/18 09:10 Famotidine (Pepcid I.v.) 20 mg Q12HR IVP 02/05/18 09:00 03/07/18 08:59 02/05/18 09:08 Heparin Sodium (Porcine) (Heparin 5000 units/ml) 5,000 units EVERY 12 HOURS SUBQ 02/04/18 21:00 03/06/18 20:59 02/05/18 09:16 Ibuprofen (Advil) 600 mg Q8H PRN ORAL MILD PAIN 02/04/18 19:27 03/06/18 19:22 Insulin Aspart (NovoLOG) BEFORE MEALS AND HS SUBQ 02/05/18 11:30 03/07/18 11:29 02/05/18 11:50 Iopamidol (Isovue-300 100ml) 100 ml NOW PRN INJ Radiology Procedure 02/04/18 15:15 Morphine Sulfate (Morphine Sulfate) 2 mg Q4H PRN IVP severe Pain 02/04/18 19:30 02/11/18 19:29 Morphine Sulfate (Morphine Sulfate) 4 mg Q2H PRN IV BREAKTHROUGH PAIN 02/04/18 19:30 02/11/18 19:29 02/04/18 20:50 Nitroglycerin (Ntg) 0.4 mg Q5M X 3 DOSES PRN SL Prn Chest Pain 02/04/18 19:30 03/06/18 19:29 Ondansetron HCl (Zofran) 4 mg Q6H PRN IVP Nausea & Vomiting 02/04/18 19:30 03/06/18 19:29 Polyethylene Glycol (Miralax) 17 gm HSPRN PRN ORAL Constipation 02/04/18 19:30 03/06/18 19:29 Potassium Chloride (K-Dur) 40 meq ONCE ONCE ORAL 02/05/18 14:30 02/05/18 14:31 UNV Tamsulosin HCl (Flomax) 0.4 mg BEDTIME ORAL 02/05/18 21:00 03/07/18 20:59 Temazepam (Restoril) 15 mg HSPRN PRN ORAL Insomnia 02/04/18 19:30 02/11/18 19:29 Tramadol HCl (Ultram) 50 mg Q6H PRN ORAL For MODERATE Pain 02/04/18 19:30 02/11/18 19:29 Assessment/Plan Problem List: (1) Nephrolithiasis ICD Codes: N20.0 - Calculus of kidney SNOMED: [id number] Assessment/Plan symptomatic treatment iv fluids f/u by Urologist Rodolfo Eason MD Feb 05, 2018 14:26
--- NOTE | 2018-02-05 16:12 | History & Physical ---
History and Physical History & Physicial Murali Dalton MD Feb 05, 2018 16:12
[2018-02-05] MEDS ORDERED: TAMSULOSIN HCL0.4 MG ORAL (16:37)
[2018-02-05] MEDS ORDERED: ZOFRAN4 MG ORAL (16:38)
[2018-02-05 16:47] VITALS: BP 110/68
[2018-02-05] MEDS ORDERED: D5 1/2NS 1000ml IV ONE (17:20)
[2018-02-05] MEDS ORDERED: cefTRIAXone 1gm/D5W 55ml IVPB SCH ×2 (18:00)
--- NOTE | 2018-02-05 18:00 | Consultation ---
DATE OF CONSULTATION: 02/05/2018 UROLOGY CONSULTATION ATTENDING/CONSULTING PHYSICIAN: Murali Dalton M.D. CHIEF COMPLAINT/HISTORY OF PRESENT ILLNESS: I was asked by Dr. Dalton to evaluate this very pleasant, 62-year-old gentleman regarding history of left ureteral stones and some colic in the setting of recent kidney stone surgery. Briefly the patient is a patient of Dr. Shilpa Aguliera. He underwent a kidney stone procedure likely ESWL with Dr. Aguilera at [facility] approximately 9 days ago for a left ureteral/kidney stone. He was sent home without a stent and presented to the emergency room with left-sided abdominal pain and colic. CT scan revealed some evidence of stones in the ureter in the process of passing. The patient has some colic and as such I was asked to evaluate the patient. PAST MEDICAL HISTORY: 1. Nephrolithiasis. 2. Diabetes mellitus. PAST SURGICAL HISTORY: Presumed ESWL. MEDICATIONS: Please see the chart for current medications and administration details. Briefly, the patient received a dose of Toradol for pain control. ALLERGIES: No known drug allergies. SOCIAL HISTORY: Unremarkable for tobacco, alcohol, or drug use. FAMILY HISTORY: Noncontributory. REVIEW OF SYSTEMS: A 14-system review of systems essentially unremarkable outside of what was described above. PHYSICAL EXAMINATION: GENERAL: The patient is gentleman, awake and alert, oriented x4, pleasant, no obvious distress. HEENT: NC/AT. EOMI. NECK: Supple. Full range of motion. Oropharynx clear. CHEST: Within normal limits. ABDOMEN: Soft, nontender, and nondistended. EXTREMITIES: Warm and well perfused. No cyanosis, clubbing or edema. BACK: No CVA tenderness to percussion at this time. NEUROLOGIC: Grossly nonfocal. LABORATORY DATA: White blood cell count 7.1 down from 11.4 on admission. Hematocrit 39.9, platelets 171. PT, PTT, and INR within normal limits. Sodium 145, potassium 3.3, chloride 106, bicarb 26, BUN 10, creatinine 0.9, glucose 126. Calcium 8.0. LFTs within normal limits. Urinalysis, specific gravity 1.015, pH 5.0. Dip test notable for 1+ protein, 3+ blood, 1+ leukocyte esterase, 20 to 30 red blood cells per high-power field. DIAGNOSTIC IMAGING: CT scan of the abdomen and pelvis without contrast reveals 3 to 4 left stones within the upper ureter, the largest measuring 7 mm in size. There is some perinephric stranding. ASSESSMENT AND PLAN: In summary, the patient is a 62-year-old gentleman with a history of left-sided kidney stone. He underwent ESWL with Dr. Shilpa Aguilera for the same approximately 9 days ago. Afterwards, he was sent home without a stent. He presents to the hospital with left-sided renal colic. Workup for the same with CT scan reveals some stones in the ureter in the process of passing. The patient had left renal colic at admission. He was given Toradol and his pain has subsided. Physical exam reveals no CVA tenderness percussion in a nontoxic patient. Laboratory data is essentially unremarkable with now a normal white blood cell count. Diagnostic imaging reveals stones as described above. I discussed these findings today with the patient at bedside and his family. He is feeling better after his pain medications. I think, he can be discharged home. He should follow up with Dr. Aguilera regarding the stones in the ureter and further management and treatment of the same. He understood and agreed with this plan. Thank you for allowing me to participate in the care of this nice gentleman. Please do not hesitate to contact me for any questions that you may further have regarding his care. I will see him with you as needed. Ho Gao M.D. DR: Bharti JOB#: [id number] CC:
[2018-02-05] MEDS ORDERED: Tamsulosin 0.4mg cap ORAL SCH (21:00)
--- NOTE | 2018-02-05 22:15 | History and Physical Report ---
DATE OF ADMISSION: 02/04/2018 CHIEF COMPLAINT: Left flank pain. HISTORY OF PRESENT ILLNESS: The patient is a 62 years old [place] gentleman with past medical history significant for diabetes type 2, on oral medication and history of kidney stone, presented to the hospital complaining about left flank pain. The patient was recently hospitalized at the [facility] about nine days ago and was diagnosed with a left-sided kidney stone, underwent lithotripsy, and subsequently was discharged home. He was taking Flomax and [facility], however, his pain become progressively worsening sharp pain, left flank, radiating to the groin and around 10:30 in the morning on the day of admission, associated with nausea and vomiting. No fever or chills. No hematuria. Shortly after initial evaluation, the patient was admitted to the hospital with left flank pain most likely secondary to nephrolithiasis. PAST MEDICAL HISTORY AND PAST SURGICAL HISTORY: As above, history of diabetes type 2 as well as nephrolithiasis, status post lithotripsy. MEDICATIONS: At home, please refer to medication reconciliation with metformin. ALLERGIES: No known drug allergies. SOCIAL HISTORY: Denies any smoking, alcohol, or drugs. He is from [place] family man with daughter and at the bedside. FAMILY HISTORY: Noncontributory. REVIEW OF SYSTEMS: Mostly as above. Denies any dysuria, frequency, or hematuria. Complained about nausea. No vomiting. Denies any hemoptysis or hematochezia. PHYSICAL EXAMINATION: VITAL SIGNS: On admission, temperature 97.5, pulse 71, respirations 18, and blood pressure 143/83. GENERAL: The patient is awake, responsive, in no acute distress. HEAD AND NECK: Pupils are equal and reactive to light. Extraocular movements are intact. Neck was supple. No JVD. LUNGS: Good air entry. No wheezing or rales. HEART: S1, S2. Regular. No murmur or gallops. ABDOMEN: Soft, nondistended, and nontender. Left flank tenderness on deep palpation. No rebound tenderness. No fluid shift. EXTREMITIES: No cyanosis, clubbing, or edema. NEUROLOGIC: Cranial nerves II through XII are grossly intact. Motor is 5/5 in all extremities. Gait is intact. RECTAL: Refused and deferred. GENITOURINARY: Refused and deferred. LABORATORY AND DIAGNOSTIC DATA: Laboratory on admission from the ER, WBC of 11, hemoglobin of 14, hematocrit 44, and platelets is 198,000. Sodium 139, potassium 3.7, chloride 103, bicarbonate 24, BUN 11, creatinine 1.1, and glucose is 132. Liver functions are essentially negative. Troponin is less than 0.009. PTT of 10, INR 1.0, and PTT of 23. UA, +1 ketone, +5 WBC, 20 to 30 RBC, and +2 leukocytes. The patient had a chest x-ray, no acute findings. CT of the abdomen and pelvic was done shows that the prostatomegaly with borderline retroperitoneum and mesenteric root lymphedema similar to the previous examination, possible reactive incidental finding, mild bilateral gynecomastia, left lower pole non-enhancing mass possible simple cyst or focal calculi, evidence of the left lower pole of the renal scarring. The patient has a multiple tandem calculi in the proximal left urethra so-called steinstrasse measuring up to the 5 x 4 mm resulting in mild hydronephrosis, proximal with perinephric fat stranding, this is a new finding since the previous study in May 07, 2017. ASSESSMENT: 1. Left flank pain, most likely secondary to renal calculi. 2. Diabetes type 2. 3. Dehydration. PLAN: Admit the patient to med/surgical floor. Follow up with the Urology consultation with , who had seen the patient already and Dr. Javier, Pulmonary, Critical Care. Discussed with family at bedside. IV hydration. Pain medications. Flomax. If the patient's status improved, consider discharge home to be followed as outpatient with primary urologist at [facility]. Murali Dalton M.D. DR: ROSMERY JOB#: [id number] CC:
--- NOTE | 2018-02-07 11:43 | Discharge Summary ---
Discharge Summary Discharge Summary _ DATE OF ADMISSION: 02/04/2018 DATE OF DISCHARGE: 02/05/2018 REASON FOR ADMISSION: 62 years old male with past medical history of diabetes mellitus type 2, nephrolithiasis, status post lithotripsy, presented to emergency department with complaint of left flank pain. Patient was recently hospitalized ar [facility] , diagnosed with left sided nephrolithiasis and subsequently underwent ESBL with Dr. Shilpa Aguilera about 9 days ago. He was afterwords sent home without stent. Patient was on Harvey and Flomax , however patient reported progressively worse left-sided flank pain, sharp, radiating to his groin . Patient presented to emergency room for further management . He reported nausea and vomiting . No fever, no chills ,no hematuria . Laboratory workup revealed WBC 11.4, stable hemoglobin and hematocrit, stable renal parameters. Blood glucose 132. Troponin negative. Urinalysis with hematuria and +2 leukocyte esterase. Chest x-ray revealed no acute cardiopulmonary pathology. CT of the abdomen and pelvis revealed multiply calculi in the proximal left ureter , resulting in mild hydronephrosis and proximal hydroureter and perinephric fat stranding. Prostatomegaly. Patient admitted with diagnoses of renal colic, nephrolithiasis ,diabetes mellitus, dehydration. CONSULTANTS: pulmonary Dr. Eason urologist [facility] COURSE: Patient admitted to medical surgical floor. Patient started on the IV fluids, empiric antibiotics.. Pain management was addressed. Flomax was continued, Urologist seen and evaluated patient. Physical examination revealed no CVA tenderness on percussion in nontoxic patient. Urologist discussed findings with the patient and his family at the bedside. Patient improved with pain management. Urologist cleared patient for discharge and recommended to follow-up with Dr. Shilpa Aguilera , his urologist at [facility], regarding the stones in the ureter and further management and treatment. Renal parameters and electrolytes were closely monitored, and electrolytes corrected as needed. Nephrotoxins were avoided. Blood sugar was managed with sliding scale of insulin. DVT and GI prophylaxis provided. Bowel regimen instituted. . Urine culture was negative. Leukocytosis resolved. Patient clinically improved and was discharged home with outpatient follow-up with urologist at [facility]. Due to rapid and unexpected improvement in patient's condition, patient was discharged in one day. FINAL DIAGNOSES: Renal colic Nephrolithiasis Dehydration Diabetes mellitus type 2 DISCHARGE MEDICATIONS: See Medication Reconciliation list. DISCHARGE INSTRUCTIONS: Patient was discharged home. Follow-up with urologist in one week I have been assigned to dictate discharge summary for this account. I was not involved in the patient's management. Pari Pedroza NP Feb 07, 2018 11:43
== END 2018-02-05 17:21 | disposition home or self-care (01) | DRG 465 ==
LOC: EMR 15:39 → 4E 18:42 → EDBEDREQ 20:41
DX: N13.2 Hydronephrosis with renal and ureteral calculous obstruction (principal); E11.9 Type 2 diabetes mellitus without complications; E86.0 Dehydration
CPT/HCPCS: 36415; 71045; 74178; 80053; 81001; 81003; 82150; 82962; 83690; 84484; 85025; 85610; 85730; 87081; 87086; 96361; 96365; 96375; 96376; 99285; J1815

== ENCOUNTER 2018-02-06 01:17 | Inpatient (IN) | payer OTHER ==
[~2018-02-06] VITALS: Ht 165.1 cm; Wt 66.2 kg
[~2018-02-06 01:17] MED LIST changes: +COLACE100 MG ORAL; +TAMSULOSIN HCL0.4 MG ORAL; +ZOFRAN4 MG ORAL
[2018-02-06] MEDS ORDERED: Morphine Sulfate 4mg/ml Inj (IV/IM USE ONLY) IVP ONE (01:45)
[2018-02-06 01:50] VITALS: BP 142/76
[2018-02-06] MEDS ORDERED: HYDROmorphone 1mg/ml Carpuject IVP ONE (02:15)
[2018-02-06] MEDS ORDERED: LORazepam Inj 2mg/ml 1ml IV ONE (02:15)
[2018-02-06 02:33] LABS: BASOPHILS % (AUTO) 0.2 % (0.0-2.0); EOSINOPHILS % (AUTO) 0.5 % (0.0-3.0); HEMATOCRIT 45.3 % (42.0-52.0); HEMOGLOBIN 15.5 G/DL (14.2-18.0); LYMPHOCYTES % (AUTO) 10.8 % (20.0-45.0); MEAN CORPUSCULAR VOLUME 84 FL (80-99); NEUTROPHILS % (AUTO) 84.5 % (45.0-75.0); PLATELET COUNT 195 K/UL (150-450); RED BLOOD COUNT 5.39 M/UL (4.70-6.10); RED CELL DISTRIBUTION WIDTH 11.3 % (11.6-14.8); WHITE BLOOD COUNT 13.1 K/UL (4.8-10.8)
--- NOTE | 2018-02-06 02:36 | Emergency Room Report ---
History of Present Illness General Chief Complaint: Back Pain-No Injury Source: Patient Present Illness HPI Patient was recently discharged from the hospital Previously patient had lithotripsy and [facility] with Dr. esquivel Patient was here with continued pain initially Seen by urology and was improved Patient was dispositioned without further intervention However today presents back with continued pain left flank area Patient denies any vomiting he has nausea Denies any chest pain denies any dysuria or frequency Patient has not been able to make contact with his previous urologist Allergies: Coded Allergies: No Known Allergies (Unverified , 03/17/17) Patient History Past Medical History: see triage record Pertinent Family History: none Reviewed Nursing Documentation: PMH: Agreed; PSxH: Agreed Nursing Documentation-PMH Hx Cardiac Problems: No - hx of kidney stone Hx Hypertension: No Hx Pacemaker: No Hx Asthma: No Hx COPD: No Hx Diabetes: Yes Hx Cancer: No Hx Gastrointestinal Problems: No Hx Dialysis: No Hx Neurological Problems: No Hx Cerebrovascular Accident: No Hx Seizures: No Review of Systems All Other Systems: negative except mentioned in HPI Physical Exam Vital Signs Date Time Temp Pulse Resp B/P (MAP) Pulse Ox O2 Delivery O2 Flow Rate FiO2 02/06/18 01:30 97.9 80 18 142/76 98 Room Air Sp02 EP Interpretation: reviewed, normal General Appearance: mild distress - Appears uncomfortable in pain Head: normocephalic, atraumatic Eyes: bilateral eye PERRL, bilateral eye EOMI ENT: hearing grossly normal, normal pharynx Neck: supple Respiratory: chest non-tender, lungs clear Cardiovascular #1: regular rate, rhythm Gastrointestinal: non tender, soft Genitourinary: no CVA tenderness Musculoskeletal: normal inspection Neurologic: normal inspection, alert, oriented x3, responsive Skin: normal color, no rash Lymphatic: no adenopathy Medical Decision Making Diagnostic Impression: Primary Impression: Renal colic ER Course Patient was just recently disposition from the hospital Had urology consultation CT imaging also showing 4-5 mm stone in the urethral region Patient is status post lithotripsy Has done somewhat better with pain medicine and IV hydration however still continued to complain of pain patient is placed into admission for further pain control Labs Test 02/06/18 02:05 02/06/18 17:30 02/07/18 06:25 02/08/18 05:00 White Blood Count 13.1 K/UL (4.8-10.8) 5.1 K/UL (4.8-10.8) 5.0 K/UL (4.8-10.8) Red Blood Count 5.39 M/UL (4.70-6.10) 4.69 M/UL (4.70-6.10) 4.75 M/UL (4.70-6.10) Hemoglobin 15.5 G/DL (14.2-18.0) 13.5 G/DL (14.2-18.0) 13.8 G/DL (14.2-18.0) Hematocrit 45.3 % (42.0-52.0) 39.4 % (42.0-52.0) 40.2 % (42.0-52.0) Mean Corpuscular Volume 84 FL (80-99) 84 FL (80-99) 85 FL (80-99) Mean Corpuscular Hemoglobin 28.7 PG (27.0-31.0) 28.7 PG (27.0-31.0) 29.0 PG (27.0-31.0) Mean Corpuscular Hemoglobin Concent 34.1 G/DL (32.0-36.0) 34.2 G/DL (32.0-36.0) 34.3 G/DL (32.0-36.0) Red Cell Distribution Width 11.3 % (11.6-14.8) 11.4 % (11.6-14.8) 11.6 % (11.6-14.8) Platelet Count 195 K/UL (150-450) 159 K/UL (150-450) 162 K/UL (150-450) Mean Platelet Volume 6.5 FL (6.5-10.1) 7.0 FL (6.5-10.1) 6.4 FL (6.5-10.1) Neutrophils (%) (Auto) 84.5 % (45.0-75.0) 67.5 % (45.0-75.0) 66.3 % (45.0-75.0) Lymphocytes (%) (Auto) 10.8 % (20.0-45.0) 26.3 % (20.0-45.0) 26.5 % (20.0-45.0) Monocytes (%) (Auto) 4.0 % (1.0-10.0) 3.8 % (1.0-10.0) 4.1 % (1.0-10.0) Eosinophils (%) (Auto) 0.5 % (0.0-3.0) 2.0 % (0.0-3.0) 2.7 % (0.0-3.0) Basophils (%) (Auto) 0.2 % (0.0-2.0) 0.4 % (0.0-2.0) 0.5 % (0.0-2.0) Sodium Level 141 MMOL/L (136-145) 139 MMOL/L (136-145) 142 MMOL/L (136-145) Potassium Level 3.9 MMOL/L (3.5-5.1) 3.7 MMOL/L (3.5-5.1) 3.6 MMOL/L (3.5-5.1) Chloride Level 104 MMOL/L (98-107) 107 MMOL/L (98-107) 107 MMOL/L (98-107) Carbon Dioxide Level 26 MMOL/L (21-32) 27 MMOL/L (21-32) 27 MMOL/L (21-32) Anion Gap 11 mmol/L (5-15) 5 mmol/L (5-15) 8 mmol/L (5-15) Blood Urea Nitrogen 12 mg/dL (7-18) 7 mg/dL (7-18) 8 mg/dL (7-18) Creatinine 1.1 MG/DL (0.55-1.30) 0.9 MG/DL (0.55-1.30) 0.9 MG/DL (0.55-1.30) Estimat Glomerular Filtration Rate > 60 mL/min (>60) > 60 mL/min (>60) > 60 mL/min (>60) Glucose Level 149 MG/DL (74-106) 118 MG/DL (74-106) 105 MG/DL (74-106) Calcium Level 9.0 MG/DL (8.5-10.1) 8.3 MG/DL (8.5-10.1) 8.7 MG/DL (8.5-10.1) Urine Color Pale yellow Urine Appearance Slightly cloudy Urine pH 7 (4.5-8.0) Urine Specific [place] 1.005 (1.005-1.035) Urine Protein Negative (NEGATIVE) Urine Glucose (UA) Negative (NEGATIVE) Urine Ketones Negative (NEGATIVE) Urine Blood 5+ (NEGATIVE) Urine Nitrite Negative (NEGATIVE) Urine Bilirubin Negative (NEGATIVE) Urine Urobilinogen Normal MG/DL (0.0-1.0) Urine Leukocyte Esterase 1+ (NEGATIVE) Urine RBC 20-30 /HPF (0 - 0) Urine WBC 2-4 /HPF (0 - 0) Urine Squamous Epithelial Cells Occasional /LPF Urine Bacteria Few /HPF (NONE) Activated Partial Thromboplast Time 27 SEC (23-33) Total Bilirubin 0.6 MG/DL (0.2-1.0) Aspartate Amino Transf (AST/SGOT) 15 U/L (15-37) Alanine Aminotransferase (ALT/SGPT) 17 U/L (12-78) Alkaline Phosphatase 67 U/L (46-116) Total Protein 6.3 G/DL (6.4-8.2) Albumin 2.9 G/DL (3.4-5.0) Globulin 3.4 g/dL Albumin/Globulin Ratio 0.9 (1.0-2.7) Amylase Level 89 U/L (25-115) Last Vital Signs Date Time Temp Pulse Resp B/P (MAP) Pulse Ox O2 Delivery O2 Flow Rate FiO2 02/06/18 01:30 97.9 80 18 142/76 98 Room Air Status: improved Disposition: ADMITTED INPATIENT Condition: Serious RashidFranci jennings Feb 06, 2018 02:36
[2018-02-06 02:45] LABS: ANION GAP 11 mmol/L (5-15); BLOOD UREA NITROGEN 12 mg/dL (7-18); CARBON DIOXIDE 26 MMOL/L (21-32); CHLORIDE 104 MMOL/L (98-107); CREATININE 1.1 MG/DL (0.55-1.30); POTASSIUM 3.9 MMOL/L (3.5-5.1); SODIUM 141 MMOL/L (136-145)
[2018-02-06] MEDS ORDERED: HYDROmorphone 1mg/ml Carpuject ONE (03:03)
[2018-02-06 04:00] VITALS: BP 128/79
[2018-02-06] MEDS ORDERED: Morphine Sulfate 4mg/ml Inj (IV/IM USE ONLY) IVP PRN (05:00)
[2018-02-06] MEDS ORDERED: Norco 5mg/325mg tab ORAL PRN (05:00)
[2018-02-06] MEDS ORDERED: D5 1/2NS 1,000 ML IV SCH (05:01)
[2018-02-06] MEDS ORDERED: Mylanta II UD 30ml ORAL PRN (05:15)
[2018-02-06] MEDS ORDERED: Miralax 17gm pkt ORAL PRN (05:15)
[2018-02-06] MEDS ORDERED: Nitroglycerin Subl 0.4mg tab SL PRN (05:15)
[2018-02-06] MEDS: NovoLOG Insulin Flexpen SUBQ SCH ×4 (07:04→20:34)
[2018-02-06 08:00] VITALS: BP 106/64
[2018-02-06] MEDS: Heparin 5000 units/ml inj SUBQ SCH ×2 (08:59→20:34)
[2018-02-06] MEDS: Docusate 100mg cap ORAL SCH ×2 (09:00→18:05)
[2018-02-06] MEDS ORDERED: D5 1/2NS 1000ml IV ONE (10:44)
[2018-02-06 12:00] VITALS: BP 127/74
[2018-02-06 16:00] VITALS: BP 99/64
[2018-02-06] MEDS: Morphine Sulfate 2mg/ml Inj IVP PRN (16:26)
--- NOTE | 2018-02-06 17:12 | History & Physical ---
History and Physical History & Physicial Dictated for Int Med-Dr Dalton no. [id number]. Ike Arias MD Feb 06, 2018 17:12
[2018-02-06] MEDS ORDERED: Isovue-300 100ml vial INJ PRN (17:15)
[2018-02-06 20:00] VITALS: BP 111/68
[2018-02-06 20:00] LABS: BILIRUBIN, URINE NEGATIVE (NEGATIVE); COLOR,URINE PALE YELLOW; GLUCOSE, URINE (UA) NEGATIVE (NEGATIVE); KETONES,URINE NEGATIVE (NEGATIVE); LEUKOCYTE ESTERASE ,URINE 1+ (NEGATIVE); NITRITE,URINE NEGATIVE (NEGATIVE); PH,URINE 7 (4.5-8.0); PROTEIN,URINE NEGATIVE (NEGATIVE); UROBILINOGEN,URINE NORMAL MG/DL (0.0-1.0)
[2018-02-06 20:02] LABS: APPEARANCE,URINE SLIGHTLY CLOUDY
[2018-02-06] MEDS: Piperacillin/Tazobactam 3.375 GM in D5W 110 ML IVPB SCH (20:28)
[2018-02-06] MEDS: Tamsulosin 0.4mg cap ORAL SCH (20:29)
[2018-02-06] MEDS ORDERED: Tamsulosin 0.4mg cap ORAL SCH (21:00)
--- NOTE | 2018-02-06 23:30 | History and Physical Report ---
DATE OF ADMISSION: 02/06/2018 CHIEF COMPLAINT: The patient is a 62-year-old male, who presents with chief complaint of left flank pain. HISTORY OF PRESENT ILLNESS: The patient has history of renal calculi x5. The patient was admitted to [facility] from January 18 to January 26, 2018. The patient is status post lithotripsy of right renal calculus. The patient was discharged home without any medication. The patient states pain returned yesterday, February 05, 2018. The patient presented to [facility]. The patient was admitted with left flank pain to rule out acute renal calculus. REVIEW OF SYSTEMS: CONSTITUTIONAL: The patient denies weight loss or weight gain. The patient denies fevers or chills. HEENT: The patient denies ear or throat pain. The patient's denies headache. CARDIOVASCULAR: The patient denies palpitations or chest pain. CHEST: The patient denies wheeze or shortness of breath. ABDOMEN: The patient complains of left flank pain as above. The patient denies hematuria. NEUROMUSCULAR: The patient denies seizures or generalized weakness. PAST MEDICAL HISTORY: Significant for: 1. Diabetes type 2. 2. History of renal calculi times total of 5. PAST SURGICAL HISTORY: Significant for lithotripsy x5. CURRENT MEDICATIONS: 1. Keflex 500 mg p.o. twice daily. 2. Bentyl 10 mg p.o. 3 times daily. 3. Ibuprofen 600 mg p.o. q.8 hours. 4. Indomethacin 50 mg p.o. 3 times daily. 5. Metformin 500 mg p.o. twice daily. 6. Nitrofurantoin 100 mg p.o. twice daily. 7. Flomax 0.4 mg p.o. daily. 8. Tramadol 50 mg p.o. q.6. h. p.r.n. ALLERGIES: No known drug allergies. SOCIAL HISTORY: The patient is . The patient denies tobacco or alcohol use. PHYSICAL EXAMINATION: VITAL SIGNS: Temperature 98.2, respirations 18, pulse 90, blood pressure 132/74. GENERAL: The patient is a well-developed, well-nourished male, in no apparent distress. HEENT: Eyes, pupils equal and responsive to light and accommodation. Extraocular movements are intact. NECK: Supple without lymphadenopathy. CHEST: Lungs are clear to auscultation bilaterally without wheezes or rales. CARDIOVASCULAR: Regular rhythm and rate. S1, S2 are normal without murmurs, rubs, or gallops. ABDOMEN: Soft, nontender, and nondistended. Positive bowel sounds. No evidence of hepatosplenomegaly. Currently, no rebound or guarding noted. EXTREMITIES: Negative for clubbing, cyanosis, or edema. RECTAL: Refused. GENITAL: Refused. NEUROLOGICAL: Cranial nerves II through XII grossly intact without focal deficits. Motor strength is 5/5 bilaterally intact. Deep tendon reflexes are 2+, plantar. LABORATORY STUDIES: WBC 13.1, hemoglobin 15.5, hematocrit 45.3, platelets 195,000. Sodium 141, potassium 3.9, chloride 104, CO2 26, BUN 12, creatinine 1.1, glucose 149. A CT scan of the abdomen and pelvis is pending. ASSESSMENT: This is a 62-year-old male with: 1. Left flank pain. 2. History of renal calculus. 3. Diabetes type 2. TREATMENT: 1. Left flank pain/renal calculus. A urine culture is pending. Urinalysis is pending. A CT scan of the abdomen and pelvis is pending. The patient may require Urology consultation if the patient has a retained stone. 2. Diabetes type 2. Continue NovoLog sliding scale. Ike Arias M.D. DR: Shaun JOB#: [id number] CC:
[2018-02-07] VITALS: BP 104/66
[2018-02-07 04:00] VITALS: BP 114/68
[2018-02-07] MEDS: Piperacillin/Tazobactam 3.375 GM in D5W 110 ML IVPB SCH ×3 (04:00→20:14)
[2018-02-07] MEDS: NovoLOG Insulin Flexpen SUBQ SCH ×4 (05:57→20:15)
[2018-02-07 07:10] LABS: BASOPHILS % (AUTO) 0.4 % (0.0-2.0); HEMATOCRIT 39.4 % (42.0-52.0); HEMOGLOBIN 13.5 G/DL (14.2-18.0); LYMPHOCYTES % (AUTO) 26.3 % (20.0-45.0); MEAN CORPUSCULAR VOLUME 84 FL (80-99); MONOCYTES % (AUTO) 3.8 % (1.0-10.0); NEUTROPHILS % (AUTO) 67.5 % (45.0-75.0); PLATELET COUNT 159 K/UL (150-450); RED BLOOD COUNT 4.69 M/UL (4.70-6.10); RED CELL DISTRIBUTION WIDTH 11.4 % (11.6-14.8); WHITE BLOOD COUNT 5.1 K/UL (4.8-10.8)
[2018-02-07 07:27] LABS: ALANINE AMINOTRANSFERASE 17 U/L (12-78); ALBUMIN 2.9 G/DL (3.4-5.0); ALBUMIN/GLOBULIN RATIO 0.9 (1.0-2.7); ALKALINE PHOSPHATASE 67 U/L (46-116); AMYLASE 89 U/L (25-115); ANION GAP 5 mmol/L (5-15); ASPARTATE AMINO TRANSFERASE 15 U/L (15-37); BILIRUBIN,TOTAL 0.6 MG/DL (0.2-1.0); BLOOD UREA NITROGEN 7 mg/dL (7-18); CALCIUM 8.3 MG/DL (8.5-10.1); CARBON DIOXIDE 27 MMOL/L (21-32); CHLORIDE 107 MMOL/L (98-107); CREATININE 0.9 MG/DL (0.55-1.30); POTASSIUM 3.7 MMOL/L (3.5-5.1); SODIUM 139 MMOL/L (136-145)
[2018-02-07 08:00] VITALS: BP 105/64
[2018-02-07] MEDS: Docusate 100mg cap ORAL SCH ×2 (09:05→18:49)
[2018-02-07] MEDS: Morphine Sulfate 2mg/ml Inj IVP PRN (09:06)
[2018-02-07] MEDS: Heparin 5000 units/ml inj SUBQ SCH ×2 (09:07→20:15)
[2018-02-07 12:00] VITALS: BP 107/70
--- NOTE | 2018-02-07 13:19 | Internal Med Progress Note ---
Subjective Date of Service: Feb 07, 2018 Physician Name Ike Arias Attending Physician Murali Datlon MD Current Medications Medications (Trade) Dose Ordered Sig/Zaida Route PRN Reason Start Time Stop Time Status Last Admin Dose Admin Acetaminophen (Tylenol) 650 mg Q4H PRN ORAL fever 02/06/18 05:15 03/08/18 05:14 Acetaminophen/ Hydrocodone Bitart (Elizabeth 5/325) 1 tab Q6H PRN ORAL For Mild Pain 02/06/18 05:00 02/13/18 04:59 Al Hydroxide/Mg Hydroxide (Mylanta II) 30 ml Q6H PRN ORAL dyspepsia 02/06/18 05:15 03/08/18 05:14 Barium Sulfate (Readi-Cat 2) 450 ml NOW PRN ORAL Radiology Procedure 02/06/18 17:15 02/08/18 17:05 Dextrose (Dextrose 50%) 25 ml Q30M PRN IV Hypoglycemia 02/06/18 05:15 03/08/18 05:14 Dextrose (Dextrose 50%) 50 ml Q30M PRN IV Hypoglycemia 02/06/18 05:15 03/08/18 05:14 Diphenhydramine HCl (Benadryl) 25 mg Q6H PRN ORAL Itching/Pruritis 02/06/18 05:15 03/08/18 05:14 Docusate Sodium (Colace) 100 mg TWICE A DAY ORAL 02/06/18 09:00 03/08/18 08:59 02/07/18 09:05 Heparin Sodium (Porcine) (Heparin 5000 units/ml) 5,000 units EVERY 12 HOURS SUBQ 02/06/18 09:00 03/08/18 08:59 02/07/18 09:07 Insulin Aspart (NovoLOG) BEFORE MEALS AND HS SUBQ 02/06/18 06:30 03/08/18 06:29 02/07/18 12:26 Iopamidol (Isovue-300 100ml) 100 ml NOW PRN INJ Radiology Procedure 02/06/18 17:15 02/08/18 23:59 Levofloxacin 100 ml @ 100 mls/hr Q24H IVPB 02/06/18 18:00 02/13/18 17:59 02/06/18 18:05 Morphine Sulfate (Morphine Sulfate) 2 mg Q4H PRN IVP severe Pain (Pain Scale 4-6) 10/27/18 05:15 02/13/18 05:14 02/07/18 09:06 Morphine Sulfate (Morphine Sulfate) 4 mg Q2H PRN IV For Pain (7-10) 02/06/18 05:15 02/13/18 05:14 Nitroglycerin (Ntg) 0.4 mg Q5M X 3 DOSES PRN SL Prn Chest Pain 02/06/18 05:15 03/08/18 05:14 Ondansetron HCl (Zofran) 4 mg Q6H PRN IVP Nausea & Vomiting 02/06/18 05:15 03/08/18 05:14 Piperacillin Sod/ Tazobactam Sod 3.375 gm/Dextrose 110 ml @ 27.5 mls/hr Q8H IVPB 02/06/18 20:00 02/13/18 19:59 02/07/18 12:24 Polyethylene Glycol (Miralax) 17 gm HSPRN PRN ORAL Constipation 02/06/18 05:15 03/08/18 05:14 Sodium Chloride 1,000 ml @ 150 mls/hr Q6H40M IV 02/06/18 12:45 03/08/18 12:44 02/07/18 11:17 Tamsulosin HCl (Flomax) 0.4 mg BEDTIME ORAL 02/06/18 21:00 03/08/18 20:59 02/06/18 20:29 Temazepam (Restoril) 15 mg HSPRN PRN ORAL Insomnia 02/06/18 05:15 02/13/18 05:14 Allergies: Coded Allergies: No Known Allergies (Unverified , 03/17/17) ROS Limited/Unobtainable: No Constitutional: Reports: no symptoms HEENT: Reports: no symptoms Cardiovascular: Reports: no symptoms Respiratory: Reports: no symptoms Gastrointestinal/Abdominal: Reports: abdominal pain Genitourinary: Reports: no symptoms Neurologic/Psychiatric: Reports: no symptoms Subjective 62 YO M admitted with left flank pain. Now hematuria. Cover for Int Danuta Dalton Objective Last Vital Signs Date Time Temp Pulse Resp B/P (MAP) Pulse Ox O2 Delivery O2 Flow Rate FiO2 02/07/18 09:36 98.1 02/07/18 09:00 Room Air 02/07/18 08:00 66 20 105/64 (78) 96 General Appearance: WD/WN, no apparent distress, alert EENT: PERRL/EOMI, normal ENT inspection, TMs normal Neck: non-tender, normal alignment, supple, normal inspection Cardiovascular: normal peripheral pulses, normal rate, regular rhythm, no gallop/murmur, no JVD Respiratory/Chest: chest wall non-tender, lungs clear, normal breath sounds, no respiratory distress, no accessory muscle use Abdomen: normal bowel sounds, non tender, soft, no organomegaly, no mass Extremities: normal range of motion, non-tender Neurologic: loom changer II-XII grossly normal, no motor/sensory deficits Skin: normal pigmentation, warm/dry Laboratory Tests Test 02/06/18 17:30 02/07/18 06:25 Urine Color Pale yellow Urine Appearance Slightly cloudy Urine pH 7 (4.5-8.0) Urine Specific [place] 1.005 (1.005-1.035) Urine Protein Negative (NEGATIVE) Urine Glucose (UA) Negative (NEGATIVE) Urine Ketones Negative (NEGATIVE) Urine Blood 5+ (NEGATIVE) H Urine Nitrite Negative (NEGATIVE) Urine Bilirubin Negative (NEGATIVE) Urine Urobilinogen Normal MG/DL (0.0-1.0) Urine Leukocyte Esterase 1+ (NEGATIVE) H Urine RBC 20-30 /HPF (0 - 0) H Urine WBC 2-4 /HPF (0 - 0) Urine Squamous Epithelial Cells Occasional /LPF Urine Bacteria Few /HPF (NONE) White Blood Count 5.1 K/UL (4.8-10.8) # Red Blood Count 4.69 M/UL (4.70-6.10) L Hemoglobin 13.5 G/DL (14.2-18.0) L Hematocrit 39.4 % (42.0-52.0) L Mean Corpuscular Volume 84 FL (80-99) Mean Corpuscular Hemoglobin 28.7 PG (27.0-31.0) Mean Corpuscular Hemoglobin Concent 34.2 G/DL (32.0-36.0) Red Cell Distribution Width 11.4 % (11.6-14.8) L Platelet Count 159 K/UL (150-450) Mean Platelet Volume 7.0 FL (6.5-10.1) Neutrophils (%) (Auto) 67.5 % (45.0-75.0) Lymphocytes (%) (Auto) 26.3 % (20.0-45.0) Monocytes (%) (Auto) 3.8 % (1.0-10.0) Eosinophils (%) (Auto) 2.0 % (0.0-3.0) Basophils (%) (Auto) 0.4 % (0.0-2.0) Activated Partial Thromboplast Time 27 SEC (23-33) Sodium Level 139 MMOL/L (136-145) Potassium Level 3.7 MMOL/L (3.5-5.1) Chloride Level 107 MMOL/L (98-107) Carbon Dioxide Level 27 MMOL/L (21-32) Anion Gap 5 mmol/L (5-15) Blood Urea Nitrogen 7 mg/dL (7-18) Creatinine 0.9 MG/DL (0.55-1.30) Estimat Glomerular Filtration Rate > 60 mL/min (>60) Glucose Level 118 MG/DL (74-106) H Calcium Level 8.3 MG/DL (8.5-10.1) L Total Bilirubin 0.6 MG/DL (0.2-1.0) Aspartate Amino Transf (AST/SGOT) 15 U/L (15-37) Alanine Aminotransferase (ALT/SGPT) 17 U/L (12-78) Alkaline Phosphatase 67 U/L (46-116) Total Protein 6.3 G/DL (6.4-8.2) L Albumin 2.9 G/DL (3.4-5.0) L Globulin 3.4 g/dL Albumin/Globulin Ratio 0.9 (1.0-2.7) L Amylase Level 89 U/L (25-115) Microbiology Date/Time Source Procedure Growth Status 02/06/18 17:30 Urine,Clean Catch Urine Culture - Preliminary NO GROWTH Resulted 02/06/18 03:55 Rectum Received Intake and Output 02/06/18 02/07/18 19:00 07:00 Intake Total 650 ml 882.5 ml Output Total 1300 ml 1200 ml Balance -650 ml -317.5 ml Intake Oral 240 ml IV Total 150 ml 642.5 ml Other 500 ml Output Urine Total 1300 ml 1200 ml # Voids 4 Assessment/Plan Problem List: (1) Left flank pain (2) Hematuria Assessment & Plan: ?renal calculus? (3) Renal calculus Assessment & Plan: Await CT abdomen/pelvis (4) Diabetes mellitus type II, controlled Assessment & Plan: continue novolog sliding scale Status: not improved Ike Arias MD Feb 07, 2018 13:19
[2018-02-07 16:00] VITALS: BP 109/68
[2018-02-07 20:00] VITALS: BP 107/65
[2018-02-07] MEDS: Tamsulosin 0.4mg cap ORAL SCH (20:14)
[2018-02-08] VITALS: BP 104/62
[2018-02-08] MEDS: Piperacillin/Tazobactam 3.375 GM in D5W 110 ML IVPB SCH ×3 (03:58→20:53)
[2018-02-08 04:00] VITALS: BP 114/65
[2018-02-08] MEDS: NovoLOG Insulin Flexpen SUBQ SCH ×4 (06:18→21:00)
[2018-02-08 06:30] LABS: BASOPHILS % (AUTO) 0.5 % (0.0-2.0); EOSINOPHILS % (AUTO) 2.7 % (0.0-3.0); HEMATOCRIT 40.2 % (42.0-52.0); HEMOGLOBIN 13.8 G/DL (14.2-18.0); LYMPHOCYTES % (AUTO) 26.5 % (20.0-45.0); MEAN CORPUSCULAR VOLUME 85 FL (80-99); MONOCYTES % (AUTO) 4.1 % (1.0-10.0); NEUTROPHILS % (AUTO) 66.3 % (45.0-75.0); PLATELET COUNT 162 K/UL (150-450); RED BLOOD COUNT 4.75 M/UL (4.70-6.10); RED CELL DISTRIBUTION WIDTH 11.6 % (11.6-14.8)
[2018-02-08 06:59] LABS: ANION GAP 8 mmol/L (5-15); BLOOD UREA NITROGEN 8 mg/dL (7-18); CALCIUM 8.7 MG/DL (8.5-10.1); CARBON DIOXIDE 27 MMOL/L (21-32); CHLORIDE 107 MMOL/L (98-107); CREATININE 0.9 MG/DL (0.55-1.30); POTASSIUM 3.6 MMOL/L (3.5-5.1); SODIUM 142 MMOL/L (136-145)
[2018-02-08 08:00] VITALS: BP 118/74
[2018-02-08] MEDS: Docusate 100mg cap ORAL SCH ×2 (09:04→18:04)
[2018-02-08] MEDS: Morphine Sulfate 2mg/ml Inj IV PRN ×2 (09:08→18:05)
[2018-02-08] MEDS: Heparin 5000 units/ml inj SUBQ SCH ×2 (09:09→21:03)
[2018-02-08 12:00] VITALS: BP 113/70
[2018-02-08 16:00] VITALS: BP 115/65
--- NOTE | 2018-02-08 17:29 | Internal Med Progress Note ---
Subjective Date of Service: Feb 08, 2018 Physician Name Ike Arias Attending Physician Murali Dalton MD Current Medications Medications (Trade) Dose Ordered Sig/Zaida Route PRN Reason Start Time Stop Time Status Last Admin Dose Admin Acetaminophen (Tylenol) 650 mg Q4H PRN ORAL fever 02/06/18 05:15 03/08/18 05:14 Acetaminophen/ Hydrocodone Bitart ([place] 5/325) 1 tab Q6H PRN ORAL For Mild Pain 02/06/18 05:00 02/13/18 04:59 Al Hydroxide/Mg Hydroxide (Mylanta II) 30 ml Q6H PRN ORAL dyspepsia 02/06/18 05:15 03/08/18 05:14 Dextrose (Dextrose 50%) 25 ml Q30M PRN IV Hypoglycemia 02/06/18 05:15 03/08/18 05:14 Dextrose (Dextrose 50%) 50 ml Q30M PRN IV Hypoglycemia 02/06/18 05:15 03/08/18 05:14 Diphenhydramine HCl (Benadryl) 25 mg Q6H PRN ORAL Itching/Pruritis 02/06/18 05:15 03/08/18 05:14 Docusate Sodium (Colace) 100 mg TWICE A DAY ORAL 02/06/18 09:00 03/08/18 08:59 02/08/18 09:04 Heparin Sodium (Porcine) (Heparin 5000 units/ml) 5,000 units EVERY 12 HOURS SUBQ 02/06/18 09:00 03/08/18 08:59 02/08/18 09:09 Insulin Aspart (NovoLOG) BEFORE MEALS AND HS SUBQ 02/06/18 06:30 03/08/18 06:29 02/08/18 11:59 Levofloxacin 100 ml @ 100 mls/hr Q24H IVPB 02/06/18 18:00 02/13/18 17:59 02/07/18 18:49 Morphine Sulfate (Morphine Sulfate) 2 mg Q4H PRN IVP severe Pain (Pain Scale 4-6) 02/06/18 05:15 02/13/18 05:14 02/07/18 09:06 Morphine Sulfate (Morphine Sulfate) 4 mg Q2H PRN IV For Pain (7-10) 02/06/18 05:15 02/13/18 05:14 02/08/18 09:08 Nitroglycerin (Ntg) 0.4 mg Q5M X 3 DOSES PRN SL Prn Chest Pain 02/06/18 05:15 03/08/18 05:14 Ondansetron HCl (Zofran) 4 mg Q6H PRN IVP Nausea & Vomiting 02/06/18 05:15 03/08/18 05:14 Piperacillin Sod/ Tazobactam Sod 3.375 gm/Dextrose 110 ml @ 27.5 mls/hr Q8H IVPB 02/06/18 20:00 02/13/18 19:59 02/08/18 11:58 Polyethylene Glycol (Miralax) 17 gm HSPRN PRN ORAL Constipation 02/06/18 05:15 03/08/18 05:14 Sodium Chloride 1,000 ml @ 150 mls/hr Q6H40M IV 02/06/18 12:45 03/08/18 12:44 02/08/18 09:11 Tamsulosin HCl (Flomax) 0.4 mg BEDTIME ORAL 02/06/18 21:00 03/08/18 20:59 02/07/18 20:14 Temazepam (Restoril) 15 mg HSPRN PRN ORAL Insomnia 02/06/18 05:15 02/13/18 05:14 Allergies: Coded Allergies: No Known Allergies (Unverified , 03/17/17) ROS Limited/Unobtainable: No Constitutional: Reports: no symptoms HEENT: Reports: no symptoms Respiratory: Reports: no symptoms Gastrointestinal/Abdominal: Reports: abdominal pain Genitourinary: Reports: no symptoms Neurologic/Psychiatric: Reports: no symptoms Subjective 62 YO M admitted with left flank pain. Now left ureteral calculus with hydronephrosis. Cover for Int Tino-Dr Dalton Objective Last Vital Signs Date Time Temp Pulse Resp B/P (MAP) Pulse Ox O2 Delivery O2 Flow Rate FiO2 02/08/18 16:00 98.1 65 18 115/65 (82) 98 02/08/18 09:00 Room Air Laboratory Tests Test 02/08/18 05:00 White Blood Count 5.0 K/UL (4.8-10.8) Red Blood Count 4.75 M/UL (4.70-6.10) Hemoglobin 13.8 G/DL (14.2-18.0) L Hematocrit 40.2 % (42.0-52.0) L Mean Corpuscular Volume 85 FL (80-99) Mean Corpuscular Hemoglobin 29.0 PG (27.0-31.0) Mean Corpuscular Hemoglobin Concent 34.3 G/DL (32.0-36.0) Red Cell Distribution Width 11.6 % (11.6-14.8) Platelet Count 162 K/UL (150-450) Mean Platelet Volume 6.4 FL (6.5-10.1) L Neutrophils (%) (Auto) 66.3 % (45.0-75.0) Lymphocytes (%) (Auto) 26.5 % (20.0-45.0) Monocytes (%) (Auto) 4.1 % (1.0-10.0) Eosinophils (%) (Auto) 2.7 % (0.0-3.0) Basophils (%) (Auto) 0.5 % (0.0-2.0) Sodium Level 142 MMOL/L (136-145) Potassium Level 3.6 MMOL/L (3.5-5.1) Chloride Level 107 MMOL/L (98-107) Carbon Dioxide Level 27 MMOL/L (21-32) Anion Gap 8 mmol/L (5-15) Blood Urea Nitrogen 8 mg/dL (7-18) Creatinine 0.9 MG/DL (0.55-1.30) Estimat Glomerular Filtration Rate > 60 mL/min (>60) Glucose Level 105 MG/DL (74-106) Calcium Level 8.7 MG/DL (8.5-10.1) Microbiology Date/Time Source Procedure Growth Status 02/06/18 03:55 Nasal Nares MRSA Culture - Final NO METHICILLIN RESISTANT STAPH AUREUS... Complete 02/06/18 17:30 Urine,Clean Catch Urine Culture - Preliminary NO GROWTH AFTER 24 HOURS Resulted 02/06/18 03:55 Rectum - Final NO CARBAPENEM-RESISTANT ENTEROBACTERI... Complete 02/06/18 03:55 Rectum VRE Culture - Final NO VANCOMYCIN RESISTANT ENTEROCOCCUS ... Complete Intake and Output 02/07/18 02/08/18 19:00 07:00 Intake Total 1917.5 ml 1212.5 ml Output Total 600 ml 1425 ml Balance 1317.5 ml -212.5 ml Intake Oral 880 ml 320 ml IV Total 1037.5 ml 892.5 ml Output Urine Total 600 ml 1425 ml # Voids 3 Objective General Appearance: WD/WN, no apparent distress, alert EENT: PERRL/EOMI, normal ENT inspection, TMs normal Neck: non-tender, normal alignment, supple, normal inspection Cardiovascular: normal peripheral pulses, normal rate, regular rhythm, no gallop/murmur, no JVD Respiratory/Chest: chest wall non-tender, lungs clear, normal breath sounds, no respiratory distress, no accessory muscle use Abdomen: normal bowel sounds, non tender, soft, no organomegaly, no mass Extremities: normal range of motion, non-tender 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 (3) Renal calculus Assessment & Plan: 02/04/18 CT abdomen/pelvis=Left proximal ureteral stone with hydronephrosis. Spoke to urology-Dr Gao- Rec repeat CT to determine location of stone. Await urology consult (4) Diabetes mellitus type II, controlled Assessment & Plan: continue novolog sliding scale Status: not improved Ike Arias MD Feb 08, 2018 17:29
[2018-02-08] MEDS ORDERED: Isovue-300 100ml vial INJ PRN (17:30)
[2018-02-08] MEDS ORDERED: 1/2 NS 1000ml IV ONE (17:35)
[2018-02-08 20:29] VITALS: BP 117/71
[2018-02-08] MEDS: Tamsulosin 0.4mg cap ORAL SCH (20:53)
[2018-02-09] VITALS: BP 120/66
[2018-02-09 04:29] VITALS: BP 104/60
[2018-02-09] MEDS: Piperacillin/Tazobactam 3.375 GM in D5W 110 ML IVPB SCH ×3 (05:46→20:23)
[2018-02-09] MEDS: NovoLOG Insulin Flexpen SUBQ SCH ×4 (05:51→20:33)
[2018-02-09 07:40] LABS: BASOPHILS % (AUTO) 0.6 % (0.0-2.0); EOSINOPHILS % (AUTO) 2.8 % (0.0-3.0); HEMATOCRIT 39.6 % (42.0-52.0); HEMOGLOBIN 13.6 G/DL (14.2-18.0); LYMPHOCYTES % (AUTO) 25.8 % (20.0-45.0); MEAN CORPUSCULAR VOLUME 84 FL (80-99); MONOCYTES % (AUTO) 4.6 % (1.0-10.0); NEUTROPHILS % (AUTO) 66.3 % (45.0-75.0); PLATELET COUNT 158 K/UL (150-450); RED BLOOD COUNT 4.72 M/UL (4.70-6.10); RED CELL DISTRIBUTION WIDTH 11.2 % (11.6-14.8); WHITE BLOOD COUNT 5.2 K/UL (4.8-10.8)
[2018-02-09 08:00] VITALS: BP 97/64
[2018-02-09 08:06] LABS: ANION GAP 8 mmol/L (5-15); BLOOD UREA NITROGEN 8 mg/dL (7-18); CALCIUM 8.2 MG/DL (8.5-10.1); CARBON DIOXIDE 26 MMOL/L (21-32); CHLORIDE 106 MMOL/L (98-107); CREATININE 0.9 MG/DL (0.55-1.30); POTASSIUM 3.4 MMOL/L (3.5-5.1); SODIUM 140 MMOL/L (136-145)
[2018-02-09] MEDS: Docusate 100mg cap ORAL SCH ×2 (08:43→17:52)
[2018-02-09] MEDS: Heparin 5000 units/ml inj SUBQ SCH ×2 (08:47→20:24)
--- NOTE | 2018-02-09 09:43 | Diagnostic Imaging Report ---
Indication: Ureteral stones and obstruction. Hydronephrosis. Follow-up. Technique: Continuous helical transaxial imaging of the abdomen and pelvis was obtained from the lung bases to the pubic symphysis during intravenous contrast administration. Coronal 2-D reformats were also obtained. Study obtained in a Siemens sensation [address] Automatic Exposure Control was utilized. Total Dose length Product (DLP): mGycm CT Dose Index Volume (CTDIvol): mGy Comparison: 02/04/2018 Findings: Previous exam that demonstrated prominent stone in the left proximal ureter 3 cm from the UPJ with the largest stone measuring about 5 mm. Additional smaller stones are also noted in this location. The stones have migrated distally down the ureter. Within the left mid ureter right at about the level of the pelvic brim there is a single 2 mm nonobstructing stone. More distally about 1 to 2 cm proximal to the UVJ there are 3 stones within the ureter with the largest stone measuring 5 mm in this location resulting in moderate left hydroureteronephrosis proximal to this location. Atrophy of the posterior cortex of the left kidney and additional multiple calyceal stones in the left kidney again noted without change. The right kidney is unremarkable. After contrast administration there is minimal delay and asymmetry of perfusion of the left kidney relative to the right due to the obstruction. On delayed excretion phase there is equal symmetric excretion. There is no change otherwise. Posterior basal atelectasis demonstrated. No free fluid identified. Diverticula are again noted in the colon. Prostate enlargement and small nodes in the mesentery and retroperitoneum again noted unchanged. Small left inguinal hernia containing fat noted. IMPRESSION: Interval distal migration of the multiple left intraureteral stones from the proximal ureter on the last exam to the mid to distal ureter. The largest stone is 5 mm and is now about 1 cm proximal to the left UVJ associated with mild to moderate hydroureteronephrosis. 2 possibly 3 additional tiny stones noted adjacently. Several centimeters proximally in the mid ureter, there is a 2 mm nonobstructing stone noted. From a functional standpoint there is only minimal delay in enhancement of the left kidney relative to the right due to obstruction. Scarring of the left kidney with multiple calyceal stones. This is unchanged in appearance. Other incidental findings as described above unchanged from the last study. The CT scanner at [facility] is accredited by the [employer] and the scans are performed using protocols designed to limit radiation exposure to as low as reasonably achievable to attain images of sufficient resolution adequate for diagnostic evaluation.
[2018-02-09 12:00] VITALS: BP 93/53
[2018-02-09] MEDS ORDERED: 1/2 NS 1000ml IV ONE (15:25)
[2018-02-09 16:00] VITALS: BP 103/66
[2018-02-09] MEDS: Morphine Sulfate 2mg/ml Inj IVP PRN (16:23)
--- NOTE | 2018-02-09 17:17 | Internal Med Progress Note ---
Subjective Date of Service: Feb 09, 2018 Physician Name Ike Arias Attending Physician Murali Dalton MD Current Medications Medications (Trade) Dose Ordered Sig/Zaida Route PRN Reason Start Time Stop Time Status Last Admin Dose Admin Acetaminophen (Tylenol) 650 mg Q4H PRN ORAL fever 02/06/18 05:15 03/08/18 05:14 Acetaminophen/ Hydrocodone Bitart ([place] 5/325) 1 tab Q6H PRN ORAL For Mild Pain 02/06/18 05:00 02/13/18 04:59 Al Hydroxide/Mg Hydroxide (Mylanta II) 30 ml Q6H PRN ORAL dyspepsia 02/06/18 05:15 03/08/18 05:14 Dextrose (Dextrose 50%) 25 ml Q30M PRN IV Hypoglycemia 02/06/18 05:15 03/08/18 05:14 Dextrose (Dextrose 50%) 50 ml Q30M PRN IV Hypoglycemia 02/06/18 05:15 03/08/18 05:14 Diphenhydramine HCl (Benadryl) 25 mg Q6H PRN ORAL Itching/Pruritis 02/06/18 05:15 03/08/18 05:14 Docusate Sodium (Colace) 100 mg TWICE A DAY ORAL 02/06/18 09:00 03/08/18 08:59 02/09/18 08:43 Heparin Sodium (Porcine) (Heparin 5000 units/ml) 5,000 units EVERY 12 HOURS SUBQ 02/06/18 09:00 03/08/18 08:59 02/09/18 08:47 Insulin Aspart (NovoLOG) BEFORE MEALS AND HS SUBQ 02/06/18 06:30 03/08/18 06:29 02/09/18 11:18 Levofloxacin 100 ml @ 100 mls/hr Q24H IVPB 02/06/18 18:00 02/13/18 17:59 02/08/18 18:04 Morphine Sulfate (Morphine Sulfate) 2 mg Q4H PRN IVP severe Pain (Pain Scale 4-6) 02/06/18 05:15 02/13/18 05:14 02/09/18 16:23 Morphine Sulfate (Morphine Sulfate) 4 mg Q2H PRN IV For Pain (7-10) 02/06/18 05:15 02/13/18 05:14 02/08/18 18:05 Nitroglycerin (Ntg) 0.4 mg Q5M X 3 DOSES PRN SL Prn Chest Pain 02/06/18 05:15 03/08/18 05:14 Ondansetron HCl (Zofran) 4 mg Q6H PRN IVP Nausea & Vomiting 02/06/18 05:15 03/08/18 05:14 Piperacillin Sod/ Tazobactam Sod 3.375 gm/Dextrose 110 ml @ 27.5 mls/hr Q8H IVPB 02/06/18 20:00 02/13/18 19:59 02/09/18 11:19 Polyethylene Glycol (Miralax) 17 gm HSPRN PRN ORAL Constipation 02/06/18 05:15 03/08/18 05:14 Sodium Chloride 1,000 ml @ 150 mls/hr Q6H40M IV 02/06/18 12:45 03/08/18 12:44 02/09/18 14:27 Tamsulosin HCl (Flomax) 0.4 mg BEDTIME ORAL 02/06/18 21:00 03/08/18 20:59 02/08/18 20:53 Temazepam (Restoril) 15 mg HSPRN PRN ORAL Insomnia 02/06/18 05:15 02/13/18 05:14 Allergies: Coded Allergies: No Known Allergies (Unverified , 03/17/17) ROS Limited/Unobtainable: No Constitutional: Reports: no symptoms HEENT: Reports: no symptoms Cardiovascular: Reports: no symptoms Respiratory: Reports: no symptoms Gastrointestinal/Abdominal: Reports: no symptoms Genitourinary: Reports: flank pain, hematuria Neurologic/Psychiatric: Reports: no symptoms Subjective 62 YO M admitted with left flank pain. Now left ureteral calculus with hydronephrosis. Cover for Int Tino-Dr Dalton Objective Last Vital Signs Date Time Temp Pulse Resp B/P (MAP) Pulse Ox O2 Delivery O2 Flow Rate FiO2 02/09/18 16:53 98.1 02/09/18 16:00 62 20 103/66 (78) 97 02/09/18 07:37 Room Air Laboratory Tests Test 02/09/18 06:20 White Blood Count 5.2 K/UL (4.8-10.8) Red Blood Count 4.72 M/UL (4.70-6.10) Hemoglobin 13.6 G/DL (14.2-18.0) L Hematocrit 39.6 % (42.0-52.0) L Mean Corpuscular Volume 84 FL (80-99) Mean Corpuscular Hemoglobin 28.9 PG (27.0-31.0) Mean Corpuscular Hemoglobin Concent 34.4 G/DL (32.0-36.0) Red Cell Distribution Width 11.2 % (11.6-14.8) L Platelet Count 158 K/UL (150-450) Mean Platelet Volume 6.3 FL (6.5-10.1) L Neutrophils (%) (Auto) 66.3 % (45.0-75.0) Lymphocytes (%) (Auto) 25.8 % (20.0-45.0) Monocytes (%) (Auto) 4.6 % (1.0-10.0) Eosinophils (%) (Auto) 2.8 % (0.0-3.0) Basophils (%) (Auto) 0.6 % (0.0-2.0) Sodium Level 140 MMOL/L (136-145) Potassium Level 3.4 MMOL/L (3.5-5.1) L Chloride Level 106 MMOL/L (98-107) Carbon Dioxide Level 26 MMOL/L (21-32) Anion Gap 8 mmol/L (5-15) Blood Urea Nitrogen 8 mg/dL (7-18) Creatinine 0.9 MG/DL (0.55-1.30) Estimat Glomerular Filtration Rate > 60 mL/min (>60) Glucose Level 103 MG/DL (74-106) Calcium Level 8.2 MG/DL (8.5-10.1) L Microbiology Date/Time Source Procedure Growth Status 02/06/18 17:30 Urine,Clean Catch Urine Culture - Final NO GROWTH AFTER 48 HOURS Complete Intake and Output 02/08/18 02/09/18 19:00 07:00 Intake Total 1797.5 ml 1050 ml Balance 1797.5 ml 1050 ml Intake Oral 760 ml IV Total 1037.5 ml 1050 ml # Voids 6 2 Objective General Appearance: WD/WN, no apparent distress, alert EENT: PERRL/EOMI, normal ENT inspection, TMs normal Neck: non-tender, normal alignment, supple, normal inspection Cardiovascular: normal peripheral pulses, normal rate, regular rhythm, no gallop/murmur, no JVD Respiratory/Chest: chest wall non-tender, lungs clear, normal breath sounds, no respiratory distress, no accessory muscle use Abdomen: normal bowel sounds, non tender, soft, no organomegaly, no mass Extremities: normal range of motion, non-tender Neurologic: 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 (3) Renal calculus Assessment & Plan: 02/04/18 CT abdomen/pelvis=Left proximal ureteral stone with hydronephrosis. Spoke to urology-Dr Gao- Repeat CT = movement of stones to mid-distal ureter. Await urology consult (4) Diabetes mellitus type II, controlled Assessment & Plan: continue novolog sliding scale Status: not improved Assessment/Plan Discussed with urology and case management- patient to have ureteroscopy and stent placed @ [facility] Ike Arias MD Feb 09, 2018 17:17
[2018-02-09 20:00] VITALS: BP 114/76
[2018-02-09] MEDS: Tamsulosin 0.4mg cap ORAL SCH (20:23)
--- NOTE | 2018-02-09 23:30 | Consultation ---
DATE OF CONSULTATION: 02/09/2018 UROLOGY CONSULTATION: ATTENDING/REFERRING PHYSICIAN: Ike Arias M.D. CONSULTING PHYSICIAN: Ho Gao M.D. CHIEF COMPLAINT/HISTORY OF PRESENT ILLNESS: I was asked by Dr. Arias to evaluate this 62-year-old gentleman, known to me from previous hospitalization here last week with a history of left ureteral stones and colic secondary to same after kidney stone procedure at an outside facility. Briefly, the patient is a patient of Dr. Shilpa Aguilera. He underwent a kidney stone procedure, which was likely an ESWL with her at [facility] approximately 2 weeks ago. He was sent home without a stent and presented to emergency room here last week with abdominal pain and left renal colic. CT scan revealed evidence of some stone fragments in the ureter in the process of passing. The patient's pain was improved on pain medication briefly and he was sent home. He then returned to the hospital however over the weekend with recurrent discomfort. As such, I was asked to evaluate the patient. PAST MEDICAL HISTORY: 1. Kidney stones. 2. Diabetes mellitus. PAST SURGICAL HISTORY: Presumed ESWL. MEDICATIONS: Please see the chart for current medications and administration details. ALLERGIES: No known drug allergies. SOCIAL HISTORY: Unremarkable for tobacco, alcohol, or drug use. FAMILY HISTORY: Noncontributory. REVIEW OF SYSTEMS: A 14-system review of systems was essentially unremarkable outside of what is described above. PHYSICAL EXAMINATION: GENERAL: The patient is an older gentleman, awake, alert, oriented x4, pleasant, no obvious distress. HEENT: NC/AT. EOMI. Oropharynx clear. NECK: Supple. Full range of motion. CHEST: Within normal limits. ABDOMEN: Soft, nontender, and nondistended. EXTREMITIES: Warm and well perfused. No cyanosis, clubbing, or edema. BACK: No CVA tenderness to percussion. NEUROLOGIC: Grossly nonfocal. LABORATORY DATA: White blood cell count 5.2, hematocrit 39.6, and platelets 158. PTT 27. Sodium 140, potassium 3.4, chloride 106, bicarbonate 26, BUN 8, creatinine 0.9, glucose 103, and calcium 8.2. Urinalysis - specific gravity 1.005, pH 7.0. Dip test notable for 5+ occult blood and 1+ leukocyte esterase. Microanalysis with 20 to 30 red blood cells per high-power field, 2 to 4 white blood cells per high-power field, few bacteria are seen. Urine culture from 02/06/2018 is no growth in final. DIAGNOSTIC IMAGING: CT scan of the abdomen and pelvis done here today reveals interval distal migration of the multiple left intraureteral stones in the proximal ureter on the last exam to the mid to distal ureter. The largest stone is 5 mm in size and is approximately 1 cm proximal to the left UVJ. At the mid left ureter, there is a 2 mm nonobstructing stone. More distally about 1 to 2 cm proximal to the UVJ, there are 3 stones piled up including the 5 mm stone described above. ASSESSMENT AND PLAN: In summary, the patient is a 62-year-old gentleman with a history of nephrolithiasis who underwent a procedure with Dr. Aguilera approximately 2 weeks ago for the same. He was not stented and is passing stone fragments who presented here last week with colic secondary to same. His pain improved and he was sent home. He returned however the next day with recurrent discomfort and pain. He was admitted again. Physical exam is unremarkable. Laboratory data is also unremarkable. Diagnostic imaging reveals distal migration of the previously seen ureteral stones, but persistence of the same including a 5 mm leading fragment 1 cm above the UVJ. I discussed these findings today with the patient at bedside. We will plan for surgical intervention given his second admission for the same. We will keep the patient NPO past midnight. Informed consent was obtained for left ureteroscopy, laser lithotripsy, double-J stent placement, cystoscopy, and fluoroscopy after discussion of the risks, benefits, alternatives of the same. Thank you for allowing me to participate in the care of this nice gentleman. Please do not hesitate to contact me for any questions that you may further have regarding his care. I will be happy to see him with you as needed. Ho Gao M.D. DR: XIMENA JOB#: [id number] CC:
[2018-02-10] VITALS (13 sets, daily range): BP systolic 92–142; BP diastolic 52–88
[2018-02-10] MEDS: Piperacillin/Tazobactam 3.375 GM in D5W 110 ML IVPB SCH ×3 (03:27→20:24)
[2018-02-10] MEDS: NovoLOG Insulin Flexpen SUBQ SCH ×4 (06:04→21:00)
[2018-02-10] MEDS: Morphine Sulfate 2mg/ml Inj IV PRN ×4 (06:19→23:24)
[2018-02-10 06:49] LABS: BASOPHILS % (AUTO) 0.5 % (0.0-2.0); EOSINOPHILS % (AUTO) 2.3 % (0.0-3.0); HEMATOCRIT 41.7 % (42.0-52.0); HEMOGLOBIN 14.3 G/DL (14.2-18.0); LYMPHOCYTES % (AUTO) 28.4 % (20.0-45.0); MEAN CORPUSCULAR VOLUME 84 FL (80-99); MONOCYTES % (AUTO) 4.2 % (1.0-10.0); NEUTROPHILS % (AUTO) 64.7 % (45.0-75.0); PLATELET COUNT 169 K/UL (150-450); RED BLOOD COUNT 4.95 M/UL (4.70-6.10); RED CELL DISTRIBUTION WIDTH 11.6 % (11.6-14.8)
[2018-02-10 06:54] LABS: ANION GAP 8 mmol/L (5-15); BLOOD UREA NITROGEN 11 mg/dL (7-18); CARBON DIOXIDE 26 MMOL/L (21-32); CHLORIDE 105 MMOL/L (98-107); CREATININE 1.1 MG/DL (0.55-1.30); SODIUM 139 MMOL/L (136-145)
[2018-02-10] MEDS: Heparin 5000 units/ml inj SUBQ SCH ×2 (08:19→20:27)
[2018-02-10] MEDS: Docusate 100mg cap ORAL SCH ×2 (08:19→18:03)
--- NOTE | 2018-02-10 15:04 | Anethesia Preoperative Eval ---
Anesthesia Pre-op PMH/ROS General Date of Evaluation: Feb 10, 2018 Time of Evaluation: 15:51 Anesthesiologist: Kel ASA Score: ASA 3 - Emergency Mallampati Score Class I : Soft palate, uvula, fauces, pillars visible Class II: Soft palate, uvula, fauces visible Class III: Soft palate, base of uvula visible Class IV: Only hard plate visible Mallampati Classification: Class II Surgeon: Sima Diagnosis: Ureteral Stone Surgical Procedure: Cystoscopy. Lithotripsy Anesthesia History: none Family History: no anesthesia problems Allergies: Coded Allergies: No Known Allergies (Unverified , 03/17/17) Medications: see eMAR Patient NPO?: Yes NPO Date: Feb 10, 2018 NPO Time: 0000 Past Medical History Endocrine: Reports: DM Anesthesia Pre-op Phys. Exam Physician Exam Last Vital Signs Date Time Temp Pulse Resp B/P (MAP) Pulse Ox O2 Delivery O2 Flow Rate FiO2 02/10/18 12:00 98.2 61 17 92/52 (65) 96 02/10/18 09:00 Room Air Constitutional: NAD Neurologic: CN 2-12 intact Cardiovascular: RRR Respiratory: CTA Gastrointestinal: S/NT/ND Airway Exam Mallampati Score: Class II MO: full ROM: full Teeth: missing, intact Anesthesia Pre-op A/P Labs Hematology Test 02/10/18 06:05 White Blood Count 5.0 K/UL (4.8-10.8) Red Blood Count 4.95 M/UL (4.70-6.10) Hemoglobin 14.3 G/DL (14.2-18.0) Hematocrit 41.7 % (42.0-52.0) L Mean Corpuscular Volume 84 FL (80-99) Mean Corpuscular Hemoglobin 28.8 PG (27.0-31.0) Mean Corpuscular Hemoglobin Concent 34.2 G/DL (32.0-36.0) Red Cell Distribution Width 11.6 % (11.6-14.8) Platelet Count 169 K/UL (150-450) Mean Platelet Volume 6.8 FL (6.5-10.1) Neutrophils (%) (Auto) 64.7 % (45.0-75.0) Lymphocytes (%) (Auto) 28.4 % (20.0-45.0) Monocytes (%) (Auto) 4.2 % (1.0-10.0) Eosinophils (%) (Auto) 2.3 % (0.0-3.0) Basophils (%) (Auto) 0.5 % (0.0-2.0) Chemistry Test 02/10/18 06:08 Sodium Level 139 MMOL/L (136-145) Potassium Level 4.0 MMOL/L (3.5-5.1) Chloride Level 105 MMOL/L (98-107) Carbon Dioxide Level 26 MMOL/L (21-32) Anion Gap 8 mmol/L (5-15) Blood Urea Nitrogen 11 mg/dL (7-18) Creatinine 1.1 MG/DL (0.55-1.30) Estimat Glomerular Filtration Rate > 60 mL/min (>60) Glucose Level 116 MG/DL (74-106) H Calcium Level 9.0 MG/DL (8.5-10.1) Risk Assessment & Plan Assessment: ASA 3E Plan: GA, SED Status Change Before Surgery: No Pre-Antibiotics Dru Gram Ancef IV Given Within 1 Hr of Incision: Yes Time Given: 16:06 Alex Begum MD Feb 10, 2018 15:04
--- NOTE | 2018-02-10 15:05 | Immediate Post-Op Evaluation ---
Immediate Post-Op Evalulation Immediate Post-Op Evalulation Procedure: Cysto, Lithotripsy Date of Evaluation: Feb 10, 2018 Time of Evaluation: 17:15 IV Fluids: 200 NS Blood Products: 0 Estimated Blood Loss: 3 Urinary Output: 0 Blood Pressure Systolic: 142 Blood Pressure Diastolic: 89 Pulse Rate: 94 Respiratory Rate: 16 O2 Sat by Pulse Oximetry: 100 Temperature (Fahrenheit): 97.9 Pain Score (1-10): 2 Nausea: No Vomiting: No Complications 0 Patient Status: awake, reacts, patent, none Hydration Status: adequate Dru Gram Ancef IV Given Within 1 Hr of Incision: Yes Time Given: 16:06 Alex Begum MD Feb 10, 2018 15:05
[2018-02-10] MEDS ORDERED: Lidocaine 1% MPF 10mg/ml 5ml ONE (15:13)
[2018-02-10] MEDS ORDERED: Propofol 200mg/20ml IV ONE (15:13)
[2018-02-10] MEDS ORDERED: Sodium Chloride 10ml vial INJ ONE (15:13)
[2018-02-10] MEDS ORDERED: Alfentanil 2ml Inj ONE (15:14)
[2018-02-10] MEDS ORDERED: Midazolam 2mg/2ml Inj ONE (15:14)
[2018-02-10] MEDS ORDERED: 1/2 NS 1000ml IV ONE (15:38)
[2018-02-10] MEDS ORDERED: Sterile Water Irrig 1000ml IRRIG ONE (15:51)
[2018-02-10] MEDS ORDERED: Tubing IV Secondary IV ONE (15:51)
--- NOTE | 2018-02-10 16:00 | Pre-Procedure Note/Attestation ---
Pre-Procedure Note/Attestation Complete Prior to Procedure Planned Procedure: left Procedure Narrative: ureteroscopy, laser lithotripsy, JJ stent placement, cystoscopy and fluoroscopy Indications for Procedure Pre-Operative Diagnosis: L ureteral stones/ hydro/ colic Attestation I attest that I discussed the nature of the procedure; its benefits; risks and complications; and alternatives (and the risks and benefits of such alternatives ), prior to the procedure, with the patient (or the patient's legal client services representative). I attest that, if there was a reasonable possibility of needing a blood transfusion, the patient (or the patient's legal client services representative) was given the [facility] standardized written summary, pursuant to the [place] Blood Safety Act ([place] Health and Safety Code # 1645, as amended). I attest that I re-evaluated the patient just prior to the surgery and that there has been no change in the patient's H&P, except as documented below: Ho Gao M.D. Feb 10, 2018 16:00
--- NOTE | 2018-02-10 16:54 | Operative Note - PDOC ---
Operative Note Operative Note Date of Operation/Procedure: Feb 10, 2018 Pre-op Diagnosis: L ureteral stones/ hydro/ colic Procedure: L URS/ laser litho/ JJ stent/ cysto/ fluoro Post-op Diagnosis: same as pre-op Operative Findings: consistent w/pre-op dx studies Surgeon: heather Anesthesiologist: Kel Anesthesia: general Specimen: yes - ureteral stones Complications: none Condition: stable Estimated Blood Loss: none Drains: other - JJ stent Implant(s) used?: Yes - JJ stent Indications for Procedure L ureteral stones/ hydro/ colic Ho Gao M.D. Feb 10, 2018 16:54
[2018-02-10] MEDS ORDERED: LR 1000ml 1,000 ML IVLG SCH (16:59)
[2018-02-10] MEDS ORDERED: DiphenhydrAMINE 50mg/ml Inj IVP PRN (17:00)
[2018-02-10] MEDS ORDERED: Midazolam 2mg/2ml Inj IVP PRN (17:00)
[2018-02-10] MEDS ORDERED: Meperidine 50mg/ml Inj(FOR RIGORS ONLY) IVP PRN (17:00)
[2018-02-10] MEDS ORDERED: Atropine Sulfate 0.4mg/ml inj IVP PRN (17:00)
[2018-02-10] MEDS ORDERED: oxyCODONE HCL/Acetaminophen 5/325mg ORAL PRN (17:00)
[2018-02-10] MEDS ORDERED: Metoclopramide 10mg/2ml Inj IVP PRN (17:00)
[2018-02-10] MEDS ORDERED: HYDROcodone/Acetamin 7.5/325 tab ORAL PRN (17:00)
[2018-02-10] MEDS ORDERED: fentaNYL 100 mcg/2 mL IV PRN (17:00)
[2018-02-10] MEDS ORDERED: Hydromorphone 0.5mg/0.5ml inj IVP PRN (17:00)
[2018-02-10] MEDS ORDERED: Norco 5mg/325mg tab ORAL PRN (17:00)
[2018-02-10] MEDS ORDERED: LORazepam Inj 2mg/ml 1ml IV PRN (17:00)
--- NOTE | 2018-02-10 18:24 | Internal Med Progress Note ---
Subjective Date of Service: Feb 10, 2018 Physician Name Ike Arias Attending Physician Murali Dalton MD Current Medications Medications (Trade) Dose Ordered Sig/Zaida Route PRN Reason Start Time Stop Time Status Last Admin Dose Admin Acetaminophen (Tylenol) 650 mg Q4H PRN ORAL fever 02/06/18 05:15 03/08/18 05:14 Acetaminophen/ Hydrocodone Bitart ([place] 5/325) 1 tab Q1H PRN ORAL Mild Pain (Pain Scale 1-3) 02/10/18 17:00 02/10/18 21:00 Acetaminophen/ Hydrocodone Bitart ([place] 5/325) 1 tab Q6H PRN ORAL For Mild Pain 02/06/18 05:00 02/13/18 04:59 Acetaminophen/ Hydrocodone Bitart ([place] 7.5/325) 1 tab Q1H PRN ORAL Moderate Pain (Pain Scale 4-6) 02/10/18 17:00 02/10/18 21:00 Al Hydroxide/Mg Hydroxide (Mylanta II) 30 ml Q6H PRN ORAL dyspepsia 02/06/18 05:15 03/08/18 05:14 Al Hydroxide/Mg Hydroxide (Mylanta) 15 ml Q1H PRN ORAL gi upset 02/10/18 17:00 02/10/18 21:00 Atropine Sulfate (Atropine 0.4mg/ ml) 0.5 mg Q5M PRN IVP HR<40 02/10/18 17:00 02/10/18 21:00 Dextrose (Dextrose 50%) 25 ml Q30M PRN IV Hypoglycemia 02/06/18 05:15 03/08/18 05:14 Dextrose (Dextrose 50%) 50 ml Q30M PRN IV Hypoglycemia 02/06/18 05:15 03/08/18 05:14 Diphenhydramine HCl (Benadryl) 25 mg Q15M PRN IVP Itching 02/10/18 17:00 02/10/18 21:00 Diphenhydramine HCl (Benadryl) 25 mg Q6H PRN ORAL Itching/Pruritis 02/06/18 05:15 03/08/18 05:14 Docusate Sodium (Colace) 100 mg TWICE A DAY ORAL 02/06/18 09:00 03/08/18 08:59 02/10/18 18:03 Fentanyl Citrate (Sublimaze 100 mcg/2 mL) 25 mcg Q10M PRN IV Moderate Pain (Pain Scale 4-6) 02/10/18 17:00 02/10/18 21:00 Heparin Sodium (Porcine) (Heparin 5000 units/ml) 5,000 units EVERY 12 HOURS SUBQ 02/06/18 09:00 03/08/18 08:59 02/09/18 20:24 Hydralazine HCl (Apresoline) 5 mg Q30M PRN IV SBP>160 / DBP>90 02/10/18 17:00 02/10/18 21:00 Hydromorphone HCl (Dilaudid) 0.5 mg Q15M PRN IVP Severe Pain (Pain Scale 7-10) 02/10/18 17:00 02/10/18 21:00 Insulin Aspart (NovoLOG) BEFORE MEALS AND HS SUBQ 02/06/18 06:30 03/08/18 06:29 02/09/18 20:33 Lactated Ringer's 1,000 ml @ 10 mls/hr Q24H IVLG 02/10/18 16:59 02/10/18 21:00 Levofloxacin 100 ml @ 100 mls/hr Q24H IVPB 02/06/18 18:00 02/13/18 17:59 02/10/18 18:03 Lorazepam (Ativan 2mg/ml 1ml) 1 mg Q15M PRN IV For Anxiety 02/10/18 17:00 02/10/18 21:00 Meperidine HCl (Demerol) 25 mg Q5M PRN IVP Shivering.May repeat x 1 02/10/18 17:00 02/10/18 21:00 Metoclopramide HCl (Reglan) 10 mg Q1H PRN IVP Nausea & Vomiting 02/10/18 17:00 02/10/18 21:00 Midazolam HCl (Versed 2mg/2ml vial) 1 mg Q15M PRN IVP For Anxiety 02/10/18 17:00 02/10/18 21:00 Morphine Sulfate (Morphine Sulfate) 2 mg Q4H PRN IVP severe Pain (Pain Scale 4-6) 02/06/18 05:15 02/13/18 05:14 02/09/18 16:23 Morphine Sulfate (Morphine Sulfate) 4 mg Q2H PRN IV For Pain (7-10) 02/06/18 05:15 02/13/18 05:14 02/10/18 18:03 Nitroglycerin (Ntg) 0.4 mg Q5M X 3 DOSES PRN SL Prn Chest Pain 02/06/18 05:15 03/08/18 05:14 Ondansetron HCl (Zofran) 4 mg Q1H PRN IVP Nausea & Vomiting 02/10/18 17:00 02/10/18 21:00 Ondansetron HCl (Zofran) 4 mg Q6H PRN IVP Nausea & Vomiting 02/06/18 05:15 03/08/18 05:14 Oxycodone/ Acetaminophen (Percocet 5-325) 1 tab Q1H PRN ORAL Severe Pain (Pain Scale 7-10) 02/10/18 17:00 02/10/18 21:00 Piperacillin Sod/ Tazobactam Sod 3.375 gm/Dextrose 110 ml @ 27.5 mls/hr Q8H IVPB 02/06/18 20:00 02/13/18 19:59 02/10/18 11:46 Polyethylene Glycol (Miralax) 17 gm HSPRN PRN ORAL Constipation 02/06/18 05:15 03/08/18 05:14 Sodium Chloride 1,000 ml @ 150 mls/hr Q6H40M IV 02/06/18 12:45 03/08/18 12:44 02/10/18 10:44 Tamsulosin HCl (Flomax) 0.4 mg BEDTIME ORAL 02/06/18 21:00 03/08/18 20:59 02/09/18 20:23 Temazepam (Restoril) 15 mg HSPRN PRN ORAL Insomnia 02/06/18 05:15 02/13/18 05:14 Allergies: Coded Allergies: No Known Allergies (Unverified , 03/17/17) ROS Limited/Unobtainable: No Constitutional: Reports: no symptoms HEENT: Reports: no symptoms Cardiovascular: Reports: no symptoms Respiratory: Reports: no symptoms Gastrointestinal/Abdominal: Reports: abdominal pain Genitourinary: Reports: no symptoms Neurologic/Psychiatric: Reports: no symptoms Subjective 62 YO M admitted with left flank pain. Now left ureteral calculus with hydronephrosis. Cover for Int Med-Dr Dalton. S/P cystourethroscopy with stent placement 02/10/18 Objective Last Vital Signs Date Time Temp Pulse Resp B/P (MAP) Pulse Ox O2 Delivery O2 Flow Rate FiO2 02/10/18 17:45 98.0 65 15 133/74 100 Nasal Cannula 3 Laboratory Tests Test 02/10/18 06:05 02/10/18 06:08 White Blood Count 5.0 K/UL (4.8-10.8) Red Blood Count 4.95 M/UL (4.70-6.10) Hemoglobin 14.3 G/DL (14.2-18.0) Hematocrit 41.7 % (42.0-52.0) L Mean Corpuscular Volume 84 FL (80-99) Mean Corpuscular Hemoglobin 28.8 PG (27.0-31.0) Mean Corpuscular Hemoglobin Concent 34.2 G/DL (32.0-36.0) Red Cell Distribution Width 11.6 % (11.6-14.8) Platelet Count 169 K/UL (150-450) Mean Platelet Volume 6.8 FL (6.5-10.1) Neutrophils (%) (Auto) 64.7 % (45.0-75.0) Lymphocytes (%) (Auto) 28.4 % (20.0-45.0) Monocytes (%) (Auto) 4.2 % (1.0-10.0) Eosinophils (%) (Auto) 2.3 % (0.0-3.0) Basophils (%) (Auto) 0.5 % (0.0-2.0) Sodium Level 139 MMOL/L (136-145) Potassium Level 4.0 MMOL/L (3.5-5.1) Chloride Level 105 MMOL/L (98-107) Carbon Dioxide Level 26 MMOL/L (21-32) Anion Gap 8 mmol/L (5-15) Blood Urea Nitrogen 11 mg/dL (7-18) Creatinine 1.1 MG/DL (0.55-1.30) Estimat Glomerular Filtration Rate > 60 mL/min (>60) Glucose Level 116 MG/DL (74-106) H Calcium Level 9.0 MG/DL (8.5-10.1) Intake and Output 02/09/18 02/10/18 19:00 07:00 Intake Total 2150 ml 450 ml Output Total 1150 ml Balance 2150 ml -700 ml Intake Oral 500 ml IV Total 1650 ml 450 ml Output Urine Total 1150 ml # Voids 6 2 # Bowel Movements 1 Objective General Appearance: WD/WN, no apparent distress, alert EENT: PERRL/EOMI, normal ENT inspection, TMs normal Neck: non-tender, normal alignment, supple, normal inspection Cardiovascular: normal peripheral pulses, normal rate, regular rhythm, no gallop/murmur, no JVD Respiratory/Chest: chest wall non-tender, lungs clear, normal breath sounds, no respiratory distress, no accessory muscle use Abdomen: normal bowel sounds, non tender, soft, no organomegaly, no mass Extremities: normal range of motion, non-tender 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 (3) Renal calculus Assessment & Plan: 02/04/18 CT abdomen/pelvis=Left proximal ureteral stone with hydronephrosis. Repeat CT 02/09/18= movement of stones to mid-distal ureter. S/P cystourethroscopy with laser/stent 02/10/18-see urology note. (4) Diabetes mellitus type II, controlled Assessment & Plan: continue novolog sliding scale Assessment/Plan Discharge planning Ike Arias MD Feb 10, 2018 18:24
[2018-02-10] MEDS: Tamsulosin 0.4mg cap ORAL SCH (20:24)
[2018-02-11] VITALS: BP 100/60
--- NOTE | 2018-02-11 01:00 | Operative Note - Dictated ---
DATE OF OPERATION: 02/10/2018 PREOPERATIVE DIAGNOSIS: Retained left ureteral stones after a previous kidney stone procedure. POSTOPERATIVE DIAGNOSIS: Retained left ureteral stones after a previous kidney stone procedure. PROCEDURE PERFORMED: Left ureteroscopy, laser lithotripsy, double-J stent placement, cystoscopy, and fluoroscopy. SURGEON: Ho Gao M.D. ANESTHESIA: General/LMA. ANESTHESIOLOGIST: Dr. Begum. ESTIMATED BLOOD LOSS: None. IV FLUIDS: IV crystalloid only. DRAINS, TUBES, AND CATHETERS: A 6-Georgian x 24 cm double-J stent left indwelling. SPECIMENS: Ureteral stone to pathology. COMPLICATIONS: None. OPERATIVE INDICATION: The patient is a 62-year-old gentleman with history of a kidney stone procedure at an outside facility with a different urologist. He presented here twice with left ureteral stones, hydronephrosis, and colic secondary to same. Given the readmission, I had counseled the patient and he elected to undergo the procedure described above. He was scheduled for this procedure on 02/10/2018. OPERATIVE IN DETAIL: The patient was brought to the operating room and placed on operative table in supine position. General anesthesia was then induced. Once the patient had his LMA placed, he was repositioned in dorsal lithotomy, draped and prepped in usual sterile fashion. Using a semi-rigid ureteroscope, the patient's urethral meatus was calibrated and the scope was passed all the way into the bladder. The urethra, prostate, and bladder were within normal limits. Both ureteral orifices were identified and attention was turned to the left ureteral orifice into which a 0.035 Glidewire was cannulated and used to pass the scope up into the distal ureter. The 5 mm stone in the distal ureter was immediately seen. Using a 365 holmium laser fiber at a setting of 1.0 joules and 6 hertz, I fragmented the stone in its entirety. There were some other smaller pieces behind this stone which were also fragmented with the laser. At the conclusion of the lithotripsy, I could pass the scope all the way up into the renal pelvis with no further evidence of obstruction, significant remaining stone, or other abnormality. A descending ureteroscopy confirmed the same and that there were no remaining significant stone pieces. The guidewire was left in place and the ureteroscope was removed. The cystoscope was back-fed over the wire and positioned at the left ureteral orifice and used to pass a 6-Georgian x 24 cm double-J stent into the left renal collecting system with a good curl noted fluoroscopically within the kidney and cystoscopically within the bladder. Once the stent was in place, the bladder was evacuated through the scope and the scope was removed. The patient was taken out of dorsal lithotomy and placed back in supine position. He was cleaned, dried, and dressed. He was awakened and extubated without difficulty and transported to recovery in stable condition. I was present and scrubbed for the entire duration of this case. All needle, sponge, and instrument counts were reported correct. Ho Gao M.D. DR: Svetlana JOB#: [id number] CC:
[2018-02-11] MEDS: Morphine Sulfate 2mg/ml Inj IV PRN ×4 (01:25→17:33)
[2018-02-11] MEDS: Piperacillin/Tazobactam 3.375 GM in D5W 110 ML IVPB SCH ×3 (03:07→20:33)
[2018-02-11 04:00] VITALS: BP 100/60
[2018-02-11] MEDS: NovoLOG Insulin Flexpen SUBQ SCH ×5 (05:47→20:44)
[2018-02-11 05:56] LABS: BASOPHILS % (AUTO) 0.3 % (0.0-2.0); EOSINOPHILS % (AUTO) 1.7 % (0.0-3.0); HEMATOCRIT 39.4 % (42.0-52.0); HEMOGLOBIN 13.5 G/DL (14.2-18.0); LYMPHOCYTES % (AUTO) 21.3 % (20.0-45.0); MEAN CORPUSCULAR VOLUME 84 FL (80-99); MONOCYTES % (AUTO) 5.5 % (1.0-10.0); NEUTROPHILS % (AUTO) 71.2 % (45.0-75.0); PLATELET COUNT 159 K/UL (150-450); RED BLOOD COUNT 4.69 M/UL (4.70-6.10); RED CELL DISTRIBUTION WIDTH 11.6 % (11.6-14.8); WHITE BLOOD COUNT 5.8 K/UL (4.8-10.8)
[2018-02-11 06:24] LABS: ANION GAP 9 mmol/L (5-15); BLOOD UREA NITROGEN 10 mg/dL (7-18); CALCIUM 8.8 MG/DL (8.5-10.1); CARBON DIOXIDE 24 MMOL/L (21-32); CHLORIDE 105 MMOL/L (98-107); CREATININE 1.1 MG/DL (0.55-1.30); POTASSIUM 3.7 MMOL/L (3.5-5.1); SODIUM 138 MMOL/L (136-145)
[2018-02-11 08:00] VITALS: BP 104/60
[2018-02-11] MEDS: Morphine Sulfate 2mg/ml Inj IVP PRN (08:33)
[2018-02-11] MEDS: Docusate 100mg cap ORAL SCH ×2 (08:33→17:33)
[2018-02-11] MEDS: Heparin 5000 units/ml inj SUBQ SCH ×2 (08:36→21:00)
--- NOTE | 2018-02-11 09:00 | Diagnostic Imaging Report ---
INDICATION: Pain, intraoperative TECHNIQUE: Intraoperative imaging Fluoroscopy time: 4 seconds Total dose: 0.84988 mGym2 Total number of images: 3 COMPARISON: None FINDINGS: Intraprocedural images demonstrate a ureteroscope in the left ureter, subsequent image demonstrates a nephroureteral stent, proximal pigtail in the expected position of the left renal pelvis IMPRESSION: Intraoperative imaging, as described
--- NOTE | 2018-02-11 09:10 | 48 Hour Post Anesthesia Eval ---
Post Anesthesia Evaluation Procedure: Cysto, Lithotripsy Date of Evaluation: Feb 11, 2018 Time of Evaluation: 09:08 Blood Pressure Systolic: 108 0: 72 Pulse Rate: 68 Respiratory Rate: 20 Temperature (Fahrenheit): 97.6 O2 Sat by Pulse Oximetry: 98 Airway: patent Nausea: No Vomiting: No Pain Intensity: 3 Hydration Status: adequate Cardiopulmonary Status: stable Mental Status/LOC: patient returned to baseline Follow-up Care/Observations: n/a Post-Anesthesia Complications: none Follow-up care needed: N/A Joey Gibson MD Feb 11, 2018 09:10
[2018-02-11 12:00] VITALS: BP 101/57
[2018-02-11 16:00] VITALS: BP 124/65
--- NOTE | 2018-02-11 17:26 | Internal Med Progress Note ---
Subjective Date of Service: Feb 11, 2018 Physician Name Ike Arias Attending Physician Murali Dalton MD Current Medications Medications (Trade) Dose Ordered Sig/Zaida Route PRN Reason Start Time Stop Time Status Last Admin Dose Admin Acetaminophen (Tylenol) 650 mg Q4H PRN ORAL fever 02/06/18 05:15 03/08/18 05:14 Acetaminophen/ Hydrocodone Bitart ([place] 5/325) 1 tab Q6H PRN ORAL For Mild Pain 02/06/18 05:00 02/13/18 04:59 Al Hydroxide/Mg Hydroxide (Mylanta II) 30 ml Q6H PRN ORAL dyspepsia 02/06/18 05:15 03/08/18 05:14 Dextrose (Dextrose 50%) 25 ml Q30M PRN IV Hypoglycemia 02/06/18 05:15 03/08/18 05:14 Dextrose (Dextrose 50%) 50 ml Q30M PRN IV Hypoglycemia 02/06/18 05:15 03/08/18 05:14 Diphenhydramine HCl (Benadryl) 25 mg Q6H PRN ORAL Itching/Pruritis 02/06/18 05:15 03/08/18 05:14 Docusate Sodium (Colace) 100 mg TWICE A DAY ORAL 02/06/18 09:00 03/08/18 08:59 02/11/18 08:33 Heparin Sodium (Porcine) (Heparin 5000 units/ml) 5,000 units EVERY 12 HOURS SUBQ 02/06/18 09:00 03/08/18 08:59 02/10/18 20:27 Insulin Aspart (NovoLOG) BEFORE MEALS AND HS SUBQ 02/06/18 06:30 03/08/18 06:29 02/11/18 16:49 Levofloxacin (Levaquin) 500 mg Q24H ORAL 02/11/18 18:00 02/18/18 17:59 Morphine Sulfate (Morphine Sulfate) 2 mg Q4H PRN IVP severe Pain (Pain Scale 4-6) 02/06/18 05:15 02/13/18 05:14 02/11/18 08:33 Morphine Sulfate (Morphine Sulfate) 4 mg Q2H PRN IV For Pain (7-10) 02/06/18 05:15 02/13/18 05:14 02/11/18 11:31 Nitroglycerin (Ntg) 0.4 mg Q5M X 3 DOSES PRN SL Prn Chest Pain 02/06/18 05:15 03/08/18 05:14 Ondansetron HCl (Zofran) 4 mg Q6H PRN IVP Nausea & Vomiting 02/06/18 05:15 03/08/18 05:14 Piperacillin Sod/ Tazobactam Sod 3.375 gm/Dextrose 110 ml @ 27.5 mls/hr Q8H IVPB 02/06/18 20:00 02/13/18 19:59 02/11/18 11:30 Polyethylene Glycol (Miralax) 17 gm HSPRN PRN ORAL Constipation 02/06/18 05:15 03/08/18 05:14 Sodium Chloride 1,000 ml @ 150 mls/hr Q6H40M IV 02/06/18 12:45 03/08/18 12:44 02/11/18 08:32 Tamsulosin HCl (Flomax) 0.4 mg BEDTIME ORAL 02/06/18 21:00 03/08/18 20:59 02/10/18 20:24 Temazepam (Restoril) 15 mg HSPRN PRN ORAL Insomnia 02/06/18 05:15 02/13/18 05:14 Allergies: Coded Allergies: No Known Allergies (Unverified , 03/17/17) ROS Limited/Unobtainable: No Constitutional: Reports: no symptoms HEENT: Reports: no symptoms Cardiovascular: Reports: no symptoms Respiratory: Reports: no symptoms Gastrointestinal/Abdominal: Reports: abdominal pain Genitourinary: Reports: no symptoms Neurologic/Psychiatric: Reports: no symptoms Subjective 62 YO M admitted with left flank pain. Now left ureteral calculus with hydronephrosis. Cover for Int [facility]-Dr Dalton. S/P cystourethroscopy with stent placement 02/10/18 Objective Last Vital Signs Date Time Temp Pulse Resp B/P (MAP) Pulse Ox O2 Delivery O2 Flow Rate FiO2 02/11/18 16:00 97.7 68 19 124/65 (84) 99 02/11/18 09:00 Room Air 02/10/18 17:45 3 Laboratory Tests Test 02/11/18 05:00 White Blood Count 5.8 K/UL (4.8-10.8) Red Blood Count 4.69 M/UL (4.70-6.10) L Hemoglobin 13.5 G/DL (14.2-18.0) L Hematocrit 39.4 % (42.0-52.0) L Mean Corpuscular Volume 84 FL (80-99) Mean Corpuscular Hemoglobin 28.7 PG (27.0-31.0) Mean Corpuscular Hemoglobin Concent 34.2 G/DL (32.0-36.0) Red Cell Distribution Width 11.6 % (11.6-14.8) Platelet Count 159 K/UL (150-450) Mean Platelet Volume 7.0 FL (6.5-10.1) Neutrophils (%) (Auto) 71.2 % (45.0-75.0) Lymphocytes (%) (Auto) 21.3 % (20.0-45.0) Monocytes (%) (Auto) 5.5 % (1.0-10.0) Eosinophils (%) (Auto) 1.7 % (0.0-3.0) Basophils (%) (Auto) 0.3 % (0.0-2.0) Sodium Level 138 MMOL/L (136-145) Potassium Level 3.7 MMOL/L (3.5-5.1) Chloride Level 105 MMOL/L (98-107) Carbon Dioxide Level 24 MMOL/L (21-32) Anion Gap 9 mmol/L (5-15) Blood Urea Nitrogen 10 mg/dL (7-18) Creatinine 1.1 MG/DL (0.55-1.30) Estimat Glomerular Filtration Rate > 60 mL/min (>60) Glucose Level 107 MG/DL (74-106) H Calcium Level 8.8 MG/DL (8.5-10.1) Intake and Output 02/10/18 02/11/18 19:00 07:00 Intake Total 1135.0 ml 860 ml Output Total 3 ml 1500 ml Balance 1132.0 ml -640 ml Intake Oral 300 ml 260 ml IV Total 835.0 ml 600 ml Output Urine Total 1500 ml Estimated Blood Loss 3 ml # Voids 6 1 # Bowel Movements 1 Objective General Appearance: WD/WN, no apparent distress, alert EENT: PERRL/EOMI, normal ENT inspection, TMs normal Neck: non-tender, normal alignment, supple, normal inspection Cardiovascular: normal peripheral pulses, normal rate, regular rhythm, no gallop/murmur, no JVD Respiratory/Chest: chest wall non-tender, lungs clear, normal breath sounds, no respiratory distress, no accessory muscle use Abdomen: normal bowel sounds, non tender, soft, no organomegaly, no mass Extremities: normal range of motion, non-tender 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 (3) Renal calculus Assessment & Plan: 02/04/18 CT abdomen/pelvis=Left proximal ureteral stone with hydronephrosis. Repeat CT 02/09/18= movement of stones to mid-distal ureter. S/P cystourethroscopy with laser/stent 02/10/18-see urology note. (4) Diabetes mellitus type II, controlled Assessment & Plan: continue novolog sliding scale Status: progressing Assessment/Plan Discharge planning: home health Ike Arias MD Feb 11, 2018 17:26
[2018-02-11] MEDS ORDERED: Levofloxacin 500mg tab ORAL SCH (18:00)
--- NOTE | 2018-02-11 19:30 | General Progress Note ---
Progress Note Progress Note No events o/n. Feels better after URS/ laser litho/ stent. AFVSS PE- abd soft, NT, ND - no changes Ext WWP A/P- improved/ stable s/p URS/ laser litho/ JJ stent for retained stone fragments OK for d/c per F/U with me for stent removal. D/W pt and family who understand and agree. Ho Gao M.D. Feb 11, 2018 19:30
[2018-02-11 20:00] VITALS: BP 111/74
[2018-02-11] MEDS: Tamsulosin 0.4mg cap ORAL SCH (20:33)
[2018-02-12] VITALS: BP 99/52
[2018-02-12] MEDS: Piperacillin/Tazobactam 3.375 GM in D5W 110 ML IVPB SCH ×2 (03:28→11:29)
[2018-02-12 04:00] VITALS: BP 108/57
[2018-02-12] MEDS: NovoLOG Insulin Flexpen SUBQ SCH ×2 (05:47→12:03)
[2018-02-12 07:09] LABS: BASOPHILS % (AUTO) 0.4 % (0.0-2.0); EOSINOPHILS % (AUTO) 2.4 % (0.0-3.0); HEMATOCRIT 39.5 % (42.0-52.0); HEMOGLOBIN 13.6 G/DL (14.2-18.0); LYMPHOCYTES % (AUTO) 21.3 % (20.0-45.0); MEAN CORPUSCULAR VOLUME 84 FL (80-99); MONOCYTES % (AUTO) 5.9 % (1.0-10.0); PLATELET COUNT 150 K/UL (150-450); RED BLOOD COUNT 4.71 M/UL (4.70-6.10); RED CELL DISTRIBUTION WIDTH 11.5 % (11.6-14.8)
[2018-02-12 07:23] LABS: ANION GAP 10 mmol/L (5-15); BLOOD UREA NITROGEN 13 mg/dL (7-18); CALCIUM 8.7 MG/DL (8.5-10.1); CARBON DIOXIDE 24 MMOL/L (21-32); CHLORIDE 105 MMOL/L (98-107); POTASSIUM 3.6 MMOL/L (3.5-5.1); SODIUM 139 MMOL/L (136-145)
[2018-02-12 08:02] VITALS: BP 99/65
[2018-02-12] MEDS: Docusate 100mg cap ORAL SCH (08:36)
[2018-02-12] MEDS: Heparin 5000 units/ml inj SUBQ SCH (08:39)
[2018-02-12] MEDS ORDERED: NORCO 5-325 TA1 EACH ORAL (10:45)
[2018-02-12] MEDS ORDERED: LEVOFLOXACIN750 MG ORAL (10:45)
[2018-02-12] MEDS ORDERED: LEVOFLOXACIN500 MG ORAL (10:46)
[2018-02-12 12:00] VITALS: BP 105/70
--- NOTE | 2018-02-12 15:49 | Discharge Summary ---
Discharge Summary Hospital Course Date of Admission Feb 06, 2018 at 02:47 Date of Discharge Admitting Diagnosis obstructive kidney stone HPI Jay Elizalde is a 62 year old male who was admitted on Feb 06, 2018 at 02:47 for Obstructive Kidney Stone Hospital Course Last 24 Hour Vital Signs Date Time Temp Pulse Resp B/P (MAP) Pulse Ox O2 Delivery O2 Flow Rate FiO2 02/12/18 12:30 98.5 02/12/18 12:00 98.2 70 20 105/70 (82) 02/12/18 08:16 Room Air 02/12/18 08:02 98.5 68 18 99/65 (76) 98 02/12/18 04:00 97.9 69 17 108/57 (74) 96 02/12/18 00:00 98.1 67 18 99/52 (68) 96 02/11/18 21:00 Room Air 02/11/18 20:00 98.0 75 19 111/74 (86) 99 02/11/18 16:00 97.7 68 19 124/65 (84) 99 Discharge Discharge Disposition Patient was discharged to Home (01) Murali Dalton MD Feb 12, 2018 15:49
[2018-02-12] MEDS ORDERED: Tubing IV Secondary IV ONE (15:59)
[2018-02-12] MEDS ORDERED: 1/2 NS 1000ml IV ONE (15:59)
--- NOTE | 2018-02-12 21:45 | Discharge Summary ---
DATE OF ADMISSION: 02/06/2018 DATE OF DISCHARGE: 02/12/2018 HOSPITAL COURSE: This is a 62-year-old very delightful gentleman with a past medical history significant for diabetes type 2 and intrarenal calculi, status post stent placement who was presented to the hospital complaining about abdominal pain. Shortly after initial evaluation, the patient was admitted to the hospital with renal calculi. Throughout the hospital course, the patient was followed with Dr. Ho Gao from and the patient underwent left ureteroscopy with laser lithotripsy, double-J stent placement, cystoscopy, and fluoroscopy on 02/10/2018. The patient tolerated the procedure well and subsequently was discharged home today to follow up with urologist as outpatient. FINAL DIAGNOSES: 1. Retained left ureteral stone after a previous kidney stone procedure. 2. Diabetes type 2. 3. Dehydration. 4. Hematuria. MEDICATIONS ON DISCHARGE: Continue discharge medication list. ACTIVITY: As tolerated. DIET: Would be diabetic diet. The patient was advised to follow up with the urologist within 1 to 2 weeks. Murali Dalton M.D. DR: MARYLU JOB#: [id number] CC:
== END 2018-02-12 16:00 | disposition home or self-care (01) | DRG 446 ==
LOC: EMR 01:48 → 3E 02:47 → EDBEDREQ 03:22
PROC: 0T778DZ Dilation of Left Ureter with Intraluminal Device, Via Natural or Artificial Opening Endoscopic (ICD-10-PCS; principal; 2018-02-10 14:00)
PROC: 0TC78ZZ Extirpation of Matter from Left Ureter, Via Natural or Artificial Opening Endoscopic (ICD-10-PCS; principal; 2018-02-10 14:00)
PROC: BT1FZZZ Fluoroscopy of Left Kidney, Ureter and Bladder (ICD-10-PCS; principal; 2018-02-10 14:00)
DX: N13.2 Hydronephrosis with renal and ureteral calculous obstruction (principal); E11.9 Type 2 diabetes mellitus without complications; Z87.442 Personal history of urinary calculi; R31.9 Hematuria, unspecified; E86.0 Dehydration
CPT/HCPCS: 36415; 74178; 74420; 76000; 76001; 80048; 80053; 81001; 82150; 82962; 85025; 85730; 87081; 87086; 94003; 94150; 96361; 96374; 96375; 99285; J1815; J2250; J2405; J3490; J8499

== ENCOUNTER 2018-02-27 10:49 | Emergency (ER) | payer OTHER ==
[~2018-02-27] VITALS: Ht 167.6 cm; Wt 64.9 kg
[~2018-02-27 10:49] MED LIST changes: +LEVOFLOXACIN500 MG ORAL; +LEVOFLOXACIN750 MG ORAL; +NORCO 5-325 TA1 EACH ORAL
[2018-02-27 11:03] VITALS: BP 111/69
[2018-02-27] MEDS ORDERED: Acetaminophen 500mg (ES) tab ORAL ONE (11:15)
[2018-02-27 11:39] LABS: APPEARANCE,URINE CLEAR; BILIRUBIN, URINE NEGATIVE (NEGATIVE); GLUCOSE, URINE (UA) NEGATIVE (NEGATIVE); KETONES,URINE NEGATIVE (NEGATIVE); LEUKOCYTE ESTERASE ,URINE NEGATIVE (NEGATIVE); NITRITE,URINE NEGATIVE (NEGATIVE); PH,URINE 5 (4.5-8.0); PROTEIN,URINE NEGATIVE (NEGATIVE); UROBILINOGEN,URINE NORMAL MG/DL (0.0-1.0)
[2018-02-27 11:40] LABS: COLOR,URINE YELLOW
[2018-02-27 11:43] LABS: BASOPHILS % (AUTO) 0.4 % (0.0-2.0); EOSINOPHILS % (AUTO) 1.9 % (0.0-3.0); HEMOGLOBIN 14.4 G/DL (14.2-18.0); LYMPHOCYTES % (AUTO) 26.8 % (20.0-45.0); MEAN CORPUSCULAR VOLUME 83 FL (80-99); MONOCYTES % (AUTO) 4.1 % (1.0-10.0); NEUTROPHILS % (AUTO) 66.7 % (45.0-75.0); PLATELET COUNT 210 K/UL (150-450); RED BLOOD COUNT 5.18 M/UL (4.70-6.10); RED CELL DISTRIBUTION WIDTH 11.1 % (11.6-14.8); WHITE BLOOD COUNT 5.6 K/UL (4.8-10.8)
[2018-02-27 11:50] LABS: ANION GAP 8 mmol/L (5-15); BLOOD UREA NITROGEN 17 mg/dL (7-18); CARBON DIOXIDE 29 MMOL/L (21-32); CHLORIDE 104 MMOL/L (98-107); POTASSIUM 3.9 MMOL/L (3.5-5.1); SODIUM 141 MMOL/L (136-145)
[2018-02-27 11:55] LABS: ALANINE AMINOTRANSFERASE 21 U/L (12-78); ALBUMIN 3.6 G/DL (3.4-5.0); ALBUMIN/GLOBULIN RATIO 0.9 (1.0-2.7); ALKALINE PHOSPHATASE 66 U/L (46-116); ASPARTATE AMINO TRANSFERASE 12 U/L (15-37); BILIRUBIN,TOTAL 0.4 MG/DL (0.2-1.0)
--- NOTE | 2018-02-27 12:01 | Emergency Room Report ---
History of Present Illness General Chief Complaint: Male Urogenital Problems Source: Patient Present Illness HPI 62-year-old male presents ED for evaluation. Complaining of penile pain 1 day. States pain is sharp, 6 out of 10, nonradiating. Worse with urination. History of kidney stones. Denies fevers chills. Denies flank pain. Also complaining of diarrhea. Denies sick contacts or recent travel. Was recently admitted here for evaluation and treatment a kidney stone with stent placement and subsequent removal. No other aggravating relieving factors. Denies any other associated symptoms Allergies: Coded Allergies: No Known Allergies (Unverified , 03/17/17) Patient History Past Medical History: DM Past Surgical History: none Pertinent Family History: none Social History: Denies: smoking, alcohol use, drug use Immunizations: UTD Reviewed Nursing Documentation: PMH: Agreed; PSxH: Agreed Nursing Documentation-PMH Hx Cardiac Problems: No - hx of kidney stone Hx Hypertension: No Hx Pacemaker: No Hx Asthma: No Hx COPD: No Hx Diabetes: Yes Hx Cancer: No Hx Gastrointestinal Problems: No Hx Dialysis: No Hx Neurological Problems: No Hx Cerebrovascular Accident: No Hx Seizures: No Review of Systems All Other Systems: negative except mentioned in HPI Physical Exam Vital Signs Date Time Temp Pulse Resp B/P (MAP) Pulse Ox O2 Delivery O2 Flow Rate FiO2 02/27/18 10:54 98.1 76 18 111/69 100 Room Air Sp02 EP Interpretation: reviewed, normal General Appearance: no apparent distress, alert, GCS 15, non-toxic Head: normocephalic Eyes: bilateral eye normal inspection, bilateral eye PERRL ENT: normal ENT inspection Neck: normal inspection Respiratory: normal inspection Cardiovascular #1: normal inspection Gastrointestinal: normal bowel sounds, non tender, soft, non-distended, no guarding, no rebound Rectal: deferred Genitourinary: no CVA tenderness, penis normal Musculoskeletal: normal inspection Neurologic: alert, oriented x3, responsive, motor strength/tone normal, sensory intact, speech normal Psychiatric: normal inspection Skin: normal inspection Lymphatic: normal inspection Medical Decision Making Diagnostic Impression: Primary Impression: Penile pain Additional Impression: Gastroenteritis ER Course Hospital Course 62 yo M presents with diarrhea, penile pain. h/o kidney stones differential diagnosis: gastritis, SBO, cholecystits, gastroenteritis Clinical course Patient placed on stretcher. On court monitor. After initial history and physical I ordered labs, IV fluids Labs - no leukocytosis, electroyltes ok, LFTs normal, UA some blood no bacteria I reviewed EMR. Had been here previously admitted for kidney stone. The last admission patient also had stent placement and lithotripsy. Stent was subsequently removed in office as outpatient. There is no flank pain. There is no abnormality on penile exam. Discussed findings with Dr. Gao. He believes patient can be safely discharged to home with close outpatient follow-up. Patient will follow-up with urologist as outpatient I feel this is a highly complex case requiring extensive working including EKG/ Rhythm strip, Xray/CT/US, Blood/urine lab work, repeat exams while in ED, and administration of strong opiates/narcotics for pain control, admission to hospital or close patient follow up. Diagnosis - gastroenteritis , penile pain Stable and discharged to home with prescriptions for tylenol #3. Followup with PMD/urology. Return to ED if symptoms recur or worsen Labs Test 02/27/18 11:28 White Blood Count 5.6 K/UL (4.8-10.8) Red Blood Count 5.18 M/UL (4.70-6.10) Hemoglobin 14.4 G/DL (14.2-18.0) Hematocrit 43.0 % (42.0-52.0) Mean Corpuscular Volume 83 FL (80-99) Mean Corpuscular Hemoglobin 27.7 PG (27.0-31.0) Mean Corpuscular Hemoglobin Concent 33.4 G/DL (32.0-36.0) Red Cell Distribution Width 11.1 % (11.6-14.8) Platelet Count 210 K/UL (150-450) Mean Platelet Volume 6.6 FL (6.5-10.1) Neutrophils (%) (Auto) 66.7 % (45.0-75.0) Lymphocytes (%) (Auto) 26.8 % (20.0-45.0) Monocytes (%) (Auto) 4.1 % (1.0-10.0) Eosinophils (%) (Auto) 1.9 % (0.0-3.0) Basophils (%) (Auto) 0.4 % (0.0-2.0) Urine Color Yellow Urine Appearance Clear Urine pH 5 (4.5-8.0) Urine Specific Parker 1.020 (1.005-1.035) Urine Protein Negative (NEGATIVE) Urine Glucose (UA) Negative (NEGATIVE) Urine Ketones Negative (NEGATIVE) Urine Blood 4+ (NEGATIVE) Urine Nitrite Negative (NEGATIVE) Urine Bilirubin Negative (NEGATIVE) Urine Urobilinogen Normal MG/DL (0.0-1.0) Urine Leukocyte Esterase Negative (NEGATIVE) Urine RBC 2-4 /HPF (0 - 0) Urine WBC 0 /HPF (0 - 0) Urine Squamous Epithelial Cells Occasional /LPF Urine Bacteria Few /HPF (NONE) Sodium Level 141 MMOL/L (136-145) Potassium Level 3.9 MMOL/L (3.5-5.1) Chloride Level 104 MMOL/L (98-107) Carbon Dioxide Level 29 MMOL/L (21-32) Anion Gap 8 mmol/L (5-15) Blood Urea Nitrogen 17 mg/dL (7-18) Creatinine 1.0 MG/DL (0.55-1.30) Estimat Glomerular Filtration Rate > 60 mL/min (>60) Glucose Level 127 MG/DL (74-106) Calcium Level 9.0 MG/DL (8.5-10.1) Total Bilirubin 0.4 MG/DL (0.2-1.0) Aspartate Amino Transf (AST/SGOT) 12 U/L (15-37) Alanine Aminotransferase (ALT/SGPT) 21 U/L (12-78) Alkaline Phosphatase 66 U/L (46-116) Total Protein 7.4 G/DL (6.4-8.2) Albumin 3.6 G/DL (3.4-5.0) Globulin 3.8 g/dL Albumin/Globulin Ratio 0.9 (1.0-2.7) Lipase 543 U/L (73-393) Last Vital Signs Date Time Temp Pulse Resp B/P (MAP) Pulse Ox O2 Delivery O2 Flow Rate FiO2 02/27/18 11:03 98.1 76 18 111/69 100 Room Air Status: improved Disposition: HOME, SELF-CARE Condition: Stable Scripts Acetaminophen With Codeine (T#3) (TYLENOL #3 TAB*) Y Tab 1 TAB ORAL Q8H PRN for For Pain, #20 TAB Prov: Sampson Sheikh MD 02/27/18 Referrals: [facility],REFERRING (PCP) Sampson Sheikh MD Feb 27, 2018 12:01
[2018-02-27] MEDS ORDERED: ACETAMINOPHEN-1 EAC1 ORAL (12:51)
[2018-02-27 12:59] VITALS: BP 119/61
== END 2018-02-27 12:59 | disposition home or self-care (01) ==
LOC: EMR 11:11
DX: N48.89 Other specified disorders of penis (principal); K52.9 Noninfective gastroenteritis and colitis, unspecified; Z87.442 Personal history of urinary calculi; E11.9 Type 2 diabetes mellitus without complications; R19.7 Diarrhea, unspecified
CPT/HCPCS: 36415; 80053; 81003; 83690; 85025; 96360; 96361; 99284

== ENCOUNTER 2020-04-18 14:43 | Emergency (ER) | payer MEDICAID, OTHER ==
[~2020-04-18] VITALS: Ht 167.6 cm; Wt 68.9 kg
[~2020-04-18 14:43] MED LIST changes: +ACETAMINOPHEN-1 EAC1 ORAL
[2020-04-18 14:52] VITALS: BP 150/85
--- NOTE | 2020-04-18 15:02 | NUR ---
ED Nurse Note: Patient from home and walked in due to coughing and sore throat x 4 days. Denies CP or SOB. AAO x4, ambulatory and speaks in full sentences.
[2020-04-18] MEDS ORDERED: TESSALON PERLE100 M2 ORAL (15:25)
[2020-04-18] MEDS ORDERED: ZITHROMAX250 MG ORAL (15:25)
[2020-04-18] MEDS ORDERED: TYLENOL EXTRA500 MG ORAL (15:25)
[2020-04-18 15:35] VITALS: BP 143/89
--- NOTE | 2020-04-18 15:35 | NUR ---
ER DISCHARGE NOTE: Patient is cleared to be discharged per ERMD, pt is aox4, on room air, with stable vital signs. pt was given dc and prescription instructions, pt was able to verbalize understanding, pt id band removed. pt is able to ambulate with steady gait. pt took all belongings.
--- NOTE | 2020-04-18 15:46 | Emergency Room Report ---
History of Present Illness General Chief Complaint: Upper Respiratory Illness Source: Medical Record Present Illness HPI Disclaimer: Please note that this report is being documented using [employer] technology. This can lead to erroneous entry secondary to incorrect interpretation by the dictating instrument. HPI: 64-year-old male presents with cough and sore throat. Symptoms present for the past 4 days. No fevers no nausea no vomiting. Cough is nonproductive. Patient has a sick contact in his at home. He has a history of diabetes, on medication. Denies any other medical history. No diarrhea. Patient admits to drinking today. Allergies: Coded Allergies: No Known Allergies (Unverified , 03/17/17) COVID-19 Screening Contact w/high risk pt: No Experienced COVID-19 symptoms?: Yes COVID-19 Testing performed [employer]: No COVID-19 Screening: Negative COVID-19 Patient History Reviewed Nursing Documentation: PMH: Agreed; PSxH: Agreed Nursing Documentation-PMH Past Medical History: No History, Except For Hx Cardiac Problems: No - hx of kidney stone Hx Hypertension: No Hx Pacemaker: No Hx Asthma: No Hx COPD: No Hx Diabetes: Yes Hx Cancer: No Hx Gastrointestinal Problems: No Hx Dialysis: No Hx Neurological Problems: No Hx Cerebrovascular Accident: No Hx Seizures: No Review of Systems All Other Systems: negative except mentioned in HPI Physical Exam Vital Signs Date Time Temp Pulse Resp B/P (MAP) Pulse Ox O2 Delivery O2 Flow Rate FiO2 04/18/20 14:52 98.4 71 16 150/85 (106) 95 Room Air Sp02 EP Interpretation: reviewed, normal General Appearance: well appearing, no apparent distress Head: normocephalic, atraumatic Eyes: bilateral eye PERRL, bilateral eye EOMI ENT: hearing grossly normal, moist mucus membranes Neck: full range of motion, supple Respiratory: lungs clear, normal breath sounds, no rhonchi, no respiratory distress, no retraction, no wheezing Cardiovascular #1: normal peripheral pulses, regular rate, rhythm, no murmur Gastrointestinal: non tender, soft, non-distended, no guarding Neurologic: alert, oriented x3, no focal defects Skin: normal color, warm/dry Medical Decision Making Diagnostic Impression: Primary Impression: Upper respiratory infection ER Course Patient presented with cough and sore throat. Differential included but not limited to COVID-19, viral pharyngitis, bronchitis to name a few. He was no acute distress. O2 saturation 95%. Lungs were clear. Exam benign. At this time will treat with azithromycin in addition to pain control and cough suppressant. I recommended home quarantine. I did refer patient for outpatient coronavirus testing. He did not have indication for admission at this time. Stable for discharge. He was given strict return precautions on when to return to the ER and I did speak with his daughter as well regarding return precautions and diagnosis. Last Vital Signs Date Time Temp Pulse Resp B/P (MAP) Pulse Ox O2 Delivery O2 Flow Rate FiO2 04/18/20 15:02 71 16 Room Air 04/18/20 14:52 98.4 150/85 95 Disposition: HOME, SELF-CARE Condition: Stable Scripts Benzonatate (Tessalon Perle) 100 Mg Capsule 100 MG ORAL THREE TIMES A DAY PRN for For Cough, #20 PERLE Prov: Jonathan Wolf M.D. 04/18/20 Azithromycin* (ZITHROMAX*) 250 Mg Tablet 250 MG ORAL DAILY, #6 TAB 0 Refills Take two tables once daily for 1 day, then one tablet once daily for 4 days. Prov: Jonathan Wolf M.D. 04/18/20 Acetaminophen* (TYLENOL EXTRA STRENGTH*) 500 Mg Tablet 500 MG ORAL Q8H PRN for Prn Headache/Temp > 101, #30 TAB 0 Refills Prov: Jonathan Wolf M.D. 04/18/20 Patient Instructions: Upper Respiratory Infection, Adult Additional Instructions: We are treating you for presumed covid-19. Please stay at home until you have not had a fever for 24 hours without the use of antifever medications, other symptoms have improved, and 10 days have passed since the onset of your initial symptoms. Please do not leave your home during this time except to seek urgent medical care. All of your close contacts should be quarantined at home at least 14 days since last contact with yourself. Please visit the following website to arrange outpatient testing through [facility] for free [email or web address] Jonathan Wolf M.D. Apr 18, 2020 15:46
== END 2020-04-18 16:00 | disposition home or self-care (01) ==
LOC: EMR 15:21
DX: J06.9 Acute upper respiratory infection, unspecified (principal); E11.9 Type 2 diabetes mellitus without complications
CPT/HCPCS: 99282